=== PATIENT | female | born 1940 | race Caucasian/White ===

== ENCOUNTER 2023-06-09 03:19 | Inpatient (IN) | payer MEDICARE, BC, SELFPAY ==
[2023-06-09 03:21] VITALS: BP 167/87; PULSE 88; RESP 22; TEMP 35.9; O2SAT 95; BMI 28.2
--- NOTE | 2023-06-09 03:34 | EX.ED.DYSGE1 ---
HPI History of Present Illness Chief Complaint: Weakness Informant: patient and family Narrative Narrative: Patient has had aggressive watery diarrhea for the past day, almost 24 hours. They are from [facility], they were in [place] staying at a hotel because of [employer] high school playoff games, the patient stayed in the hotel the entire day because of feeling very tired. Tonight she was so weak and feeling poorly along with myalgias that she complains of in her legs, she has to go to the hospital. They went to a hospital in [place], and never made it into a bed because they were told the wait may be 6 hours so daughter put her in the car along with help, and brought her here. Needed significant help to get her out of the car because the patient was not able to help get herself up and out of the car at all. 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 She and the entire family ate fish at the same restaurant last night no one else is ill, no known sick contacts, no history of C. difficile, no recent antibiotics for any reason and no travel further than she already has, no travel out of the state recently. No other suspicious food intake. [facility] Medical History (Updated 06/09/23 @ 06:[address] Tom Jerry MD) Diabetes mellitus, type 2 HTN (hypertension) Vascular dementia Home Medications carvedilol 25 mg tablet 25 mg PO Q12H 06/09/23 [History Last Taken Unknown] hydrochlorothiazide 25 mg tablet 25 mg PO DAILY 06/09/23 [History Last Taken Unknown] lisinopril 40 mg tablet 40 mg PO DAILY 06/09/23 [History Last Taken Unknown] metformin 500 mg tablet 500 mg PO BIDAC 06/09/23 [History Last Taken Unknown] simvastatin 20 mg tablet 20 mg PO DAILY 06/09/23 [History Last Taken Unknown] Allergy/AdvReac Type Severity Reaction Status Date / Time promethazine [From Phenergan] Allergy Unknown UNSURE Verified 06/09/23 03:25 Family History (Updated 06/09/23 @ 05:[address] Lyle Montalvo DO) Other CAD (coronary artery disease) Social History Smoking Status: Never smoker ROS ROS ED Constitutional Constitutional ED: Reports body ache(s), fatigue and weakness; Denies chills or fever(s) Eyes Eyes: Denies change in vision or diplopia ENT ENT ED: Denies rhinorrhea or sore throat Cardiovascular Cardiovascular: Denies chest pain or palpitations Respiratory/Chest Respiratory/Chest: Reports dyspnea; Denies cough Gastrointestinal Gastrointestinal: Reports diarrhea; Denies abdominal pain, hematochezia, melena, nausea or vomiting Genitourinary Genitourinary ED: Denies dysuria or hematuria Musculoskeletal Musculoskeletal: Reports myalgias; Denies back pain or neck pain Integumentary Denies abscess or rash Neurologic Neurologic: Reports confusion; Denies headache(s), paresthesias or weakness Psychiatric Psychiatric: Denies anxiety or suicidal thoughts EXAM Physical Exam Const Vital Signs: 06/09/23 03:21 06/09/23 03:25 Temperature 96.7 F L Temperature Source Temporal Pulse Rate 88 Respiratory Rate 22 H Respiratory Effort Short of Breath Respiratory Pattern Tachypnea Blood Pressure 167/87 H Blood Pressure Mean 113 Pulse Ox 95 Oxygen Delivery Method Room Air Positive well nourished and well developed Constitutional Narrative: Appears malaised General Appearance ED: well developed and NAD HEENT Reports moist mucous membranes normocephalic and atraumatic Eyes PERRL and EOMs intact bilaterally Neck full ROM, no lymphadenopathy and supple Resp normal respiratory effort and clear to auscultation bilaterally Resp Narrative: Mildly tachypneic but in no respiratory distress, no retractions or accessory muscle use Cardio regular rate, regular rhythm and no murmurs GI non-tender and non-distended GI Narrative: Normal inspection no Steven sign no Pryor William sign Auscultation: normoactive bowel sounds Palpation: soft Back/Spine no CVA tenderness General Back: other FROM Extremity normal to inspection General Extremety ED: Negative for edema, pulses abnormal or tenderness General Extremity: Negative for edema or pulses abnormal Neuro CN's II-XII intact bilaterally and no sensory deficits noted Neuro Narrative: Near baseline according to daughter maybe a little more confused Sensorium / Orientation: awake, alert and orientation impaired Motor Exam: strength 5/5 throughout Psych mental status grossly normal Skin no rashes or lesions noted and no wounds MDM MDM MDM Narrative Medical decision making narrative: Patient is not from this area so no old labs available for comparison but her creatinine is elevated, she has prerenal azotemia on top of that, her troponin is nonspecifically slightly elevated in context of an EKG that shows no STEMI or significant ST depressions but there is a left axis, and since she has no old EKG unknown if this is new or not. If diarrhea is viral, myocarditis is in the differential here, but may be false positive due to acute dehydration. Chest x-ray 1 view on my interpretation shows no acute abnormality including pulmonary edema or pneumonia. Given all of this especially her acute weakness and inability to walk despite getting IV fluids here, discussed with hospitalist for admission for continued treatment, with other goals being to rule out acute coronary syndrome and to obtain stool for testing which has not been available so far, in order to rule out nonviral etiologies of her diarrhea. Lab Data Attestation: I reviewed the patient's lab results. Labs: Laboratory Results - last 24 hr 06/09/23 04:15 WBC 6.7 RBC 4.18 L Hgb 12.3 Hct 36.2 L MCV 86.6 MCH 29.4 MCHC 34.0 RDW Std Deviation 41.2 RDW Coeff of [place] 13.1 Plt Count 138 L MPV 10.6 Immature Gran % (Auto) 0.700 Neut % (Auto) 86.1 H Lymph % (Auto) 8.5 L [place] % (Auto) 4.6 Eos % (Auto) 0.0 Baso % (Auto) 0.1 Absolute Neuts (auto) 5.8 Absolute Lymphs (auto) 0.57 L Nucleated RBC % 0 Differential Comment SCANNED Sodium 135 L Potassium 4.0 Chloride 103 Carbon Dioxide 21.0 Anion Gap 11 BUN 32 H Creatinine 1.76 H Estim Creat Clear Calc 18.28 Est GFR (MDRD) Af Amer 35 L Est GFR (MDRD) Non-Af 29 L BUN/Creatinine Ratio 18.2 Glucose 204 H Lactic Acid 1.5 Calcium 8.2 L Total Bilirubin 0.50 AST 151 H ALT 55 Alkaline Phosphatase 61 Troponin I High Sens 111 H Total Protein 6.5 Albumin 3.1 L Globulin 3.4 Albumin/Globulin Ratio 0.9 ABG Data ABG results: ABG 06/09/23 04:38 Specimen Type PENELOPE Sample Site Not entered O2 % 21.0 VBG pH 7.41 VBG pO2 36 VBG HCO3 20 L VBG Total CO2 21 L VBG O2 Sat (Calc) 70 VBG Base Excess -5 L POC Mix VBG pCO2 Pt Tmp 31.3 L O2 Delivery Device Not entered Rhythm Strip Rhythm Strip: Sinus Rhythm Rate: 85 Ectopy: None EKG Initial EKG: Attestation: I personally reviewed and interpreted this EKG as follows: Interpretation: Sinus Rhythm, No Acute Injury Pattern and LAFB Prior EKG tracings: not available for review Prior: No Prior Management Discussion w/another healthcare provider: Hospitalist Discharge Plan Dx/Rx/DC Orders Clinical Impression: Acute dehydration, Elevated troponin I level, Acute diarrhea, Acute dyspnea, Generalized weakness Disposition Disposition: Acute Care Hospital [facility]
[2023-06-09] MEDS: 0.9% Normal Saline (1000mL) 1,000 ML 1000 ML IV (04:23)
[2023-06-09 04:42] LABS: Blood Gas Specimen Type VEN; O2 Delivery Device Not entered; SITE Not entered; VBG BASE EXCESS -5 mmol/L (-1.0-3.5); VBG Bicarbonate 20 mmol/L (22-26); VBG PO2 36 mmHg (25-40); VBG SO2 70 % (50-70); VBG TCO2 21 mmol/L (23-33); VBG pCO2 31.3 mmHg (41-51); VBG pH 7.41 (7.32-7.42)
[2023-06-09 04:50] LABS: ALB/GLOB Ratio 0.9 RATIO (0.9-2.4); AST(SGOT) 151 U/L (15-37); Alanine Aminotransfer ALT/SGPT 55 U/L (13-56); Albumin, Serum 3.1 g/dL (3.2-5.0); Alkaline Phosphatase 61 U/L (45-117); Anion Gap 11 (5-15); BUN 32 mg/dL (7-18); BUN/Creat Ratio 18.2 RATIO (10-20); Calcium,Total 8.2 mg/dL (8.5-10.1); Chloride 103 mmol/L (98-107); Creatinine, Serum 1.76 mg/dL (0.55-1.02); EST Glomerular Filtration Rate 29 mL/min (>60); Est Glom Filt Rate - Afr Amer 35 mL/min (>60); Estimated Creatinine Clearance 18.28 ml/min; Globulin 3.4 g/dL (2.2-4.2); Glucose 204 mg/dL (74-106); Protein, Total 6.5 g/dL (6.4-8.2); Sodium Level 135 mmol/L (136-145); Troponin-I HS 111 pg/mL (3.0-54.0)
--- NOTE | 2023-06-09 05:00 | EKG12_ITS ---
Test Reason : SOB Blood Pressure : / mmHG Vent. Rate : 086 BPM Atrial Rate : 086 BPM P-R Int : 156 ms QRS Dur : 088 ms QT Int : 352 ms P-R-T Axes : 029 -36 055 degrees QTc Int : 421 ms Normal sinus rhythm Left axis deviation Minimal voltage criteria for LVH, may be normal variant ( [place] product ) Septal infarct , age undetermined Abnormal ECG Confirmed by MIRTA GONZALEZ, ALEXANDRA ([id number]), restaurant expeditor JEANNINE BAXTER ([id number]) on 06/11/2023 10:51:33 AM Referred By: Lyle Montalvo Confirmed By:ALEXANDRA KIRBY MD
[2023-06-09 05:03] LABS: Absolute Lymphocyte Count 0.57 X10^3/uL (0.83-4.51); Absolute Neutrophil Count 5.8 X10^3/uL (2.0-7.7); Basophil# 0.01 X10^3/uL; Basophil% 0.1 % (0-1); Hematocrit 36.2 % (37-47); Hemoglobin 12.3 g/dL (12.0-15.0); Lymphocyte # 0.57 X10^3/ul (0.83-4.51); Lymphocyte % 8.5 % (19-41); Mean Corpuscular Hgb 29.4 pg (27.0-32.0); Mean Corpuscular Volume 86.6 fL (81-99); Mean Platelet Vol. 10.6 fl (6.2-12.0); Monocyte# 0.31 X10^3/uL; Monocyte% 4.6 % (0-10); NRBC Flagged by Analyzer 0 % (0-5); Neutrophil # 5.75 X10^3/uL (2.7-7.7); Neutrophil % 86.1 % (47-70); POSITIVE DIFFERENTIAL YES; Platelet Count 138 K/mm3 (150-450); RBC Distribution Width CV 13.1 % (11.6-14.6); RBC Distribution Width SD 41.2 fl (35.1-43.9); Red Blood Count 4.18 M/mm3 (4.2-5.4); White Blood Count 6.7 K/mm3 (4.4-11.0)
[2023-06-09 05:13] LABS: Lactic Acid 1.5 mmol/L (0.4-1.9)
[2023-06-09 05:26] LABS: Differential Indicated SCAN CRITERIA MET
--- NOTE | 2023-06-09 05:45 | RAD_ITS ---
EXAM: XR ABDOMEN, 1 VIEW CLINICAL INDICATION: nausea vomiting. TECHNIQUE: Frontal supine view of the abdomen/pelvis. COMPARISON: No relevant prior studies available. FINDINGS: LOWER THORAX: No acute pathology. GASTROINTESTINAL TRACT: Unremarkable. Non-obstructive. No bowel or stomach distention. ORGANS: Unremarkable as visualized. No organomegaly. No abnormal calcifications. BONES/JOINTS: No acute pathology. SOFT TISSUES: No acute pathology. RAD/Abdomen Single View (Portable) IMPRESSION: Non-obstructive bowel gas pattern. Electronically Signed: Jamel Weaver MD at 6:51 EST ,
[2023-06-09 05:49] LABS: Differential Comment SCANNED
--- NOTE | 2023-06-09 05:55 | HP.PCM.HOS_ITS ---
HPI - General General Date of Service: 06/09/23 Chief Complaint: Nausea, vomiting and weakness. HPI Narrative ANIL DENNIS, is a 82 F who presents 1 day history of diarrhea. Patient also very weak. Additionally also short of breath patient is a poor historian given her malaise so history is obtained from the patient's daughters at bedside. States that the patient is normally short of breath but this is much more exacerbated than times. Not requiring oxygen and not hypoxic however. Presented outside hospital and referred to bring patient in bed 7 to be a delay before they can get her room here. There is no records available in our system or through [employer]. Patient had a troponin ordered by the emergency room physician because of the shortness of breath and came back at 111. There was no reported chest pain nor does the patient have a history of cardiac disease. Chest x-ray has been ordered already in the emergency room but has not been perf ormed. Patient received IV fluids estimating that she did receive in the emergency room. With the nausea and vomiting there is no abdominal x-ray been ordered either nor urinalysis. Stool studies were ordered but not collected. [facility] Medical History (Updated 06/09/23 @ 05:[address] Lyle Montalvo DO) Diabetes mellitus, type 2 HTN (hypertension) Vascular dementia Home Medications carvedilol 25 mg tablet 25 mg PO Q12H 06/09/23 [History Last Taken Unknown] hydrochlorothiazide 25 mg tablet 25 mg PO DAILY 06/09/23 [History Last Taken Unknown] lisinopril 40 mg tablet 40 mg PO DAILY 06/09/23 [History Last Taken Unknown] metformin 500 mg tablet 500 mg PO BIDAC 06/09/23 [History Last Taken Unknown] simvastatin 20 mg tablet 20 mg PO DAILY 06/09/23 [History Last Taken Unknown] Allergy/AdvReac Type Severity Reaction Status Date / Time promethazine [From Phenergan] Allergy Unknown UNSURE Verified 06/09/23 03:25 Family History (Updated 06/09/23 @ 05:[address] Lyle Montalvo DO) Other CAD (coronary artery disease) Social History Smoking Status: Never smoker ROS ROS Narrative Patient is a poor historian and does not really provide any details as to just very tired and not willing to engage in questioning. Please refer to the HPI for further details. Vital Signs Vital Signs Vital Signs: 06/09/23 03:21 06/09/23 03:25 Temperature 35.9 C L Temperature Source Temporal Pulse Rate 88 Respiratory Rate 22 H Respiratory Effort Short of Breath Respiratory Pattern Tachypnea Blood Pressure 167/87 H Blood Pressure Mean 113 Pulse Ox 95 Oxygen Delivery Method Room Air Weight Weight: 67.7 kg Body Mass Index (BMI) 28.2 Physical Exam Const Constitutional Narrative: Listless. Afebrile. Nontoxic-appearing. HEENT normocephalic and moist oral mucous membranes Eyes Eyes Narrative: No icterus Neck no lymphadenopathy Neck Narrative: No thyromegaly Resp normal respiratory effort, no retractions, no use of accessory muscles and clear to auscultation bilaterally Cardio regular rate, regular rhythm, S1 normal heart sound and S2 normal heart sound GI GI Narrative: Distended. Nontender. Hypoactive bowel sounds. Extremity normal to inspection and no clubbing, cyanosis or edema Neuro moves all extremities and no focal motor deficits Psych Psych Narrative: Flat affect Results Lab / Micro Data Attestation: I reviewed the patient's lab results. 06/09/23 04:15 06/09/23 04:15 Labs: Laboratory Results - last 24 hr 06/09/23 04:15: WBC 6.7, RBC 4.18 L, Hgb 12.3, Hct 36.2 L, MCV 86.6, MCH 29.4, MCHC 34.0, RDW Std Deviation 41.2, RDW Coeff of Kan 13.1, Plt Count 138 L, MPV 10.6, Immature Gran % (Auto) 0.700, Neut % (Auto) 86.1 H, Lymph % (Auto) 8.5 L, [place] % (Auto) 4.6, Eos % (Auto) 0.0, Baso % (Auto) 0.1, Absolute Neuts (auto) 5.8, Absolute Lymphs (auto) 0.57 L, Nucleated RBC % 0, Differential Comment SCANNED, Sodium 135 L, Potassium 4.0, Chloride 103, Carbon Dioxide 21.0, Anion Gap 11, BUN 32 H, Creatinine 1.76 H, Estim Creat Clear Calc 18.28, Est GFR (MDRD) Af Amer 35 L, Est GFR (MDRD) Non-Af 29 L, BUN/Creatinine Ratio 18.2, Glucose 204 H, Lactic Acid 1.5, Calcium 8.2 L, Total Bilirubin 0.50, AST 151 H, ALT 55, Alkaline Phosphatase 61, Troponin I High Sens 111 H, Total Protein 6.5, Albumin 3.1 L, Globulin 3.4, Albumin/Globulin Ratio 0.9 ABG Data ABG results: ABG 06/09/23 04:38 Specimen Type PENELOPE Sample Site Not entered O2 % 21.0 VBG pH 7.41 VBG pO2 36 VBG HCO3 20 L VBG Total CO2 21 L VBG O2 Sat (Calc) 70 VBG Base Excess -5 L POC Mix VBG pCO2 Pt Tmp 31.3 L O2 Delivery Device Not entered Rhythm Strip Rhythm Strip: Sinus Rhythm Rate: 85 Ectopy: None EKG Initial EKG: Attestation: I personally reviewed and interpreted this EKG as follows: Prior EKG tracings: available for review EKG Rhythm Intrepretation: Sinus Rhythm (No prior EKGs available to compare to. No acute changes.) Assessment & Plan Assessment/Plan (1) Elevated troponin I level: PLAN: Unclear significance. Indication for troponin was because of shortness of breath. No baseline labs to be able to compare to in our system and nothing reg ards to prior troponin levels to be able to compare to management [facility] much less any other laboratories. Will cycle troponins. Start aspirin. Troponins do trend upwards, may need to consider anticoagulation. Will check an echocardiogram. Consult cardiology. Chest x-ray ordered in the emergency room but had not been performed by the time the hospital service was contacted. (2) Acute diarrhea: PLAN: Unclear etiology. Suspect may be more of a viral source. Stool studies ordered in the emergency room. Not collected yet. Supportive management. Abdomen is distended. Will check an abdominal x-ray. (3) TODD (acute kidney injury): PLAN: Suspected but no baseline labs to compare to. Creatinines at 1.7. IV fluids. Monitor (4) Debility: PLAN: Likely due to dehydration unclear if there is concern regards to the el evated troponin being a factor PT OT evaluate and treat Check UA to evaluate see patient has in the underlying urinary tract infection PLAN: Plan Chronic conditions * Vascular dementia: Unknown baseline. Avoid potentiating medications that may exacerbate delirium. * Diabetes mellitus type 2: On metformin. They will be held for now. Sliding scale insulin. * Hypertension: Hold HCTZ and lisinopril due to TODD. Continue with carvedilol. * Lipidemia: Continue statin. VTE prophylaxis with enoxaparin CODE STATUS: Addressed with the patient's daughter at bedside. Patient is full code. Charges/Coding Visit Charges Inpatient E&M: 44400 Init Hosp L3
--- NOTE | 2023-06-09 06:00 | RAD_ITS ---
EXAM: XR CHEST, 1 VIEW CLINICAL INDICATION: sob TECHNIQUE: Frontal view of the chest. COMPARISON: No relevant prior studies available. FINDINGS: LUNGS AND PLEURAL SPACES: Unremarkable. No consolidation or edema. No pneumothorax. No effusion. HEART: Unremarkable. Cardiac silhouette not enlarged. MEDIASTINUM: Central airways and mediastinal contour are unremarkable. BONES/JOINTS: Unremarkable. No acute fracture. SOFT TISSUES: Unremarkable. RAD/Chest 1 View (Portable) IMPRESSION: No radiographic evidence of acute cardiopulmonary disease. Electronically Signed: Jamel Weaver MD at 6:52 EST ,
[2023-06-09 07:12] VITALS: BMI 27.6
[2023-06-09 07:15] VITALS: BP 155/69; PULSE 91; RESP 18; TEMP 36.3; O2SAT 99
--- NOTE | 2023-06-09 07:24 | PN.HOSP_ITS ---
Reason for Visit Reason for Visit: Severe generalized weakness Subjective Subjective Patient is an 82-year-old female with a history of vascular dementia who pre sented to the emergency department at [facility] early this morning on 06/09/2023 complaining of generalized weakness. Patient has evidently had aggressive watery diarrhea for about the last 24 hours. Patient and family are from [place], [place]. They were in [place] watching the [employer] school football playoff game staying at [facility]. Evidently, the patient stayed at the hotel the entire day because she was not feeling well. She reported also having myalgias in her legs. They went to [facility] however never made it to her bed because they were told it may be a 6-hour wait in the emergency department so her daughter put her in the car and drove her to this facility. Upon presentation her temperature was 96.7, heart rate 88, respiratory was 22 oxygen saturations were 95% on room air and blood pressure was 167/87. Her CBC was overall unremarkable however she did have a mild thrombocytopenia with a platelet count 138,000 and a left shift showing a an 86.1% neutrophilia. Baseline platelet count is unknown as we have never had previous labs at this facility. Her chemistry panel showed an elevated BUN and serum creatinine at 32 and 1.76 respectively. Again on known baseline. Blood glucose was 204. Her lactic acid was normal at 1.5. Her AST was mildly elevated at 158 with normal ALT and her troponin was elevated at 111. She did not have chest pain on pr esentation. She was admitted to the PCU with her elevated troponin and cardiac enzymes have been cycled. Echocardiogram is pending and cardiology was consulted. Stool studies are pending for her diarrhea and PT and OT has been consulted. Objective Data Objective Data Vital Signs: Vital Signs Temp Pulse Resp BP Pulse Ox O2 Del Method 97.3 F L 91 18 155/69 H 99 Room Air 06/09/23 07:15 06/09/23 07:15 06/09/23 07:15 06/09/23 07:15 06/09/23 07:15 06/09/23 07:15 Oxygen Delivery Method Room Air Weight: 67.7 kg Body Mass Index (BMI) 28.2 Intake & Output: Intake and Output for Last 24 Hours 06/07/23 06/08/23 06/09/23 23:59 23:59 23:59 Intake Total 1000 / 1000 Balance 1000 / 1000 Lab / Micro Data 06/09/23 04:15 06/09/23 04:15 Labs: Laboratory Results - last 24 hr 06/09/23 04:15: WBC 6.7, RBC 4.18 L, Hgb 12.3, Hct 36.2 L, MCV 86.6, MCH 29.4, MCHC 34.0, RDW Std Deviation 41.2, RDW Coeff of Kan 13.1, Plt Count 138 L, MPV 10.6, Immature Gran % (Auto) 0.700, Neut % (Auto) 86.1 H, Lymph % (Auto) 8.5 L, [place] % (Auto) 4.6, Eos % (Auto) 0.0, Baso % (Auto) 0.1, Absolute Neuts (auto) 5.8, Absolute Lymphs (auto) 0.57 L, Nucleated RBC % 0, Differential Comment SCANNED, Sodium 135 L, Potassium 4.0, Chloride 103, Carbon Dioxide 21.0, Anion Gap 11, BUN 32 H, Creatinine 1.76 H, Estim Creat Clear Calc 18.28, Est GFR (MDRD) Af Amer 35 L, Est GFR (MDRD) Non-Af 29 L, BUN/Creatinine Ratio 18.2, Glucose 204 H, Lactic Acid 1.5, Calcium 8.2 L, Total Bilirubin 0.50, AST 151 H, ALT 55, Alkaline Phosphatase 61, Troponin I High Sens 111 H, Total Protein 6.5, Albumin 3.1 L, Globulin 3.4, Albumin/Globulin Ratio 0.9 Micro: Microbiology 06/09/23 06:23 Stool Stool Lactoferrin - Final ABG Data ABG results: ABG 06/09/23 04:38 Specimen Type PENELOPE Sample Site Not entered O2 % 21.0 VBG pH 7.41 VBG pO2 36 VBG HCO3 20 L VBG Total CO2 21 L VBG O2 Sat (Calc) 70 VBG Base Excess -5 L POC Mix VBG pCO2 Pt Tmp 31.3 L O2 Delivery Device Not entered Radiography Diagnostic Testing: Radiology Impression KUB X-Ray 06/09/23 05:45 IMPRESSION: Non-obstructive bowel gas pattern. Electronically Signed: Jamel Weaver MD at 6:51 EST , Chest X-Ray 06/09/23 06:00 IMPRESSION: No radiographic evidence of acute cardiopulmonary disease. Electronically Signed: Jamel Weaver MD at 6:52 EST Reading Location ID and State: [address] [place] [address] Tel , Service support , Rhythm Strip Rhythm Strip: Sinus Rhythm Rate: 85 Ectopy: None Assessment & Plan Assessment/Plan (1) Generalized weakness: (2) Acute dyspnea: (3) Debility: (4) TODD (acute kidney injury): (5) Acute diarrhea: (6) Elevated troponin I level: (7) Acute dehydration: (8) Elevated serum creatinine: (9) Thrombocytopenia: (10) UTI (urinary tract infection): PLAN: Plan Severe diarrhea -Lactoferrin was unremarkable -C. difficile and enteric panel are pending -KUB shows a nonobstructive bowel gas pattern -Continue IV fluids -Clear liquid diet and will advance as tolerated Elevated troponin level -Significance is unclear -Patient is not having chest pain and serum creatinine is elevated -We will cycle cardiac enzymes -Chest x-ray is unremarkable -Echocardiogram is pending Suspected UTI -Urine culture is consistent with urinary tract infection -Start ceftriaxone 1 g daily -Send culture Serum creatinine elevation -Baseline is unclear however admitting creatinine was 1.76 -Do suspect patient is dehydrated with diarrhea and lack of p.o. intake -IV fluids as ordered -Repeat in a.m. -Avoid nephrotoxins -Will hold home HCTZ and lisinopril with suspected TODD -Check CK Debility -PT/OT consultation -Case management/social work consultation for assistance with discharge planning Thrombocytopenia -Etiology is unclear -Baseline is unknown -Continue to monitor Acute dyspnea -Check COVID-19 and flu -Patient is currently on room air -Continue to monitor Hypertension -Hold HCTZ -Hold lisinopril -Continue home Coreg -As needed hydralazine for systolic pressure greater than 160 DM-2 -Hold home metformin -SSI -Will advance to cardiac/carb controlled diet once p.o. intake is tolerated well Hyperlipidemia -Continue home statin History of vascular dementia -Monitor DVT prophylaxis -Enoxaparin 40 subcu daily CODE STATUS -Full code is verified on presentation
--- NOTE | 2023-06-09 07:31 | ECHOD_ITS ---
Reason For Study: Elevated Troponin Procedure This was a 2D Doppler, Color Flow transthoracic echocardiogram. Exam performed portable in patient room. Left Ventricle Normal LV size. Left ventricular systolic function is normal. The estimated ejection fraction is 65 %. Stage 1 diastolic dysfunction. No regional wall motion abnormalities noted. Right Ventricle Normal RV size. Normal systolic function. Atria Normal left atrium. Normal right atrium. Mitral Valve Normal mitral valve. Tricuspid Valve Normal tricuspid valve. Mild tricuspid valve insufficiency. Pulmonary artery systolic pressure is 26 mmHg. Aortic Valve Normal aortic valve. Trisinus/trileaflet aortic valve. Pulmonic Valve Normal pulmonic valve. Great Vessels Normal aortic root. The pulmonary artery is normal size. Normal inferior vena cava. Pericardium/Pleural No pericardial effusion. MMode/2D Measurements & Calculations LVIDd: 3.7 cm IVSd: 0.92 cm Ao root diam: 2.6 cm LVIDs: 2.3 cm LVPWd: 1.0 cm RVDd: 2.3 cm FS: 39.8 % LAV(MOD-bp): 31.4 ml LVAd ap4: 16.7 cm2 SV(MOD-sp4): 23.5 ml LAV(MOD-bp) Indexed: 18.9 ml/m2 LVLd ap4: 6.1 cm LAV(MOD-sp2): 32.2 ml EDV(MOD-sp4): 37.9 ml LAV(MOD-sp4): 26.9 ml EDV(sp4-el): 38.8 ml LVAs ap4: 9.0 cm2 LVLs ap4: 4.9 cm ESV(MOD-sp4): 14.3 ml ESV(sp4-el): 14.1 ml EF(MOD-sp4): 62.1 % EF(sp4-el): 63.8 % SV(sp4-el): 24.8 ml LA A4 area: 11.6 cm2 LA dimension(2D): 3.5 cm RA A4 area: 6.5 cm2 TAPSE: 2.1 cm Time Measurements MV dec time: 0.30 sec Doppler Measurements & Calculations MV E max scott: 74.6 cm/sec Lat Peak E' Scott: 8.1 cm/sec Med Peak E' Scott: 6.3 cm/sec MV A max scott: 109.1 cm/sec E/E' lat: 9.2 E/E' med: 11.8 MV E/A: 0.68 Ao V2 max: 187.6 cm/sec LV V1 max: 113.0 cm/sec MV dec slope: 250.0 cm/sec2 Ao max P.1 mmHg LV V1 max P.1 mmHg Ao V2 mean: 148.9 cm/sec LV V1 mean P.3 mmHg Ao mean P.2 mmHg LV V1 mean: 85.6 cm/sec Ao V2 VTI: 37.4 cm LV V1 VTI: 23.0 cm AV (velocity ratio): 0.62 PA V2 max: 101.8 cm/sec TR max scott: 236.9 cm/sec TR max P.4 mmHg ECHO/Echo Complete Interpretation Summary Normal LV size. Left ventricular systolic function is normal. The estimated ejection fraction is 65 %. Stage 1 diastolic dysfunction. Pulmonary artery systolic pressure is 26 mmHg. Ordering Physician: Lyle Montalvo Referring Physician: Lyle Montalvo Performed By: Antonina Gill, DAVID, RVT
[2023-06-09] MEDS: 0.9% Normal Saline (1000mL) 1,000 ML 150 ML IV (08:14)
[2023-06-09 08:37] VITALS: O2SAT 96
[2023-06-09 09:31] LABS: Troponin-I HS 132 pg/mL (3.0-54.0)
[2023-06-09] MEDS: Carvedilol 25 MG Tablet PO (10:02)
[2023-06-09] MEDS: Enoxaparin 30 MG/0.3 ML Syringe SC (10:03)
[2023-06-09] MEDS: Aspirin 81 MG TAB.CHEW 324 MG PO (10:05)
[2023-06-09] MEDS: Insulin Lispro 100 UNIT/ML INSULN.PEN SC ×2 (10:11→16:40)
[2023-06-09 10:27] LABS: Bedside Glucose 240 mg/dL (74-106)
[2023-06-09 11:05] LABS: Mucous, Urine 0 SEEN /hpf (<or=2+); Red Blood Cells-Urine 0 SEEN /hpf (0-5); Squamous Epithelial Cells - UA 0 SEEN /hpf (5-10)
[2023-06-09 11:07] LABS: Color, Urine Yellow (Yellow); Glucose, Dipstick Normal (Normal); Ketone-Dipstick 5 mg/dl (Negative); Leukocyte Esterase-Dipstick 500 /ul (Negative); Nitrite-Dipstick Positive (Negative); Occult Blood-Urine 250 /ul (Negative); Protein-Dipstick 100 mg/dl (Negative); Specific Gravity, Urine 1.015 (1.002-1.030); Urine Bilirubin Dipstick Negative (Negative); Urine Clarity Clear (Clear); Urine Urobilinogen Normal (Normal)
[2023-06-09 11:59] LABS: Bacteria 3+ /hpf (None Seen); White Blood Cells >100 SEEN /hpf (0-5)
--- NOTE | 2023-06-09 12:49 | CASEMGMT ---
Addendum entered by Rustam Wood 06/09/23 13:06: Family live nearby and are supportive. Original Note: RN?CM?GEAR TOOTH GRINDING MACHINE OPERATOR?CM?to room to meet with patient for initial transition planning/care coordination?assessment.?RN?CM?introduced self and role at [facility].? Pt voices understanding and consents to?assessment?at this time.? Pt resting in bed in no distress at this time.? Son, Prashanth, @ bedside. Pt is A/O at this time and able to answer most questions, but she did refer to her son for some additional information. Care providers, pharmacy, and demographics verified/updated at this time. PCP: Dr Estrellita Perez in [facility] Specialists: Pt and son think pt f/u with a instructional coordinator in [facility], but not sure and not sure on his name. Pt sees a neurologist @ [facility] and gets cognitive testing routinely (about every 6 months). Has dx of vascular dementia. Preferred Pharmacy: [facility]. Pt and son think she has a supplemental insurance, but not sure what co. Son states he will try and get this information. Prescription Benefit:?Yes Living Will/HPOA:?Son states he thinks pt has done LW and HCPOA and that POA would be pt's daughter, Juwan. LNOK: 7 adult children. Living Arrangements: Lives alone in ranch-style home w/2 steps to enter. Son states she rarely goes to the basement. Pt is independent w/ADL's and IADL's. Juwan helps to manage medications and sets up weekly pill containers. Transportation:?Pt, family DME: ?States has the following DME:?glucometer w/supplies, BP cuff. ?Pt and son state no need for further DME at this time.? HHC/SNF: No hx of either. No needs identified. Pt wishes to return home and pt and son state no concerns with her going home at time of discharge. PLAN:??Home w/family support and discharge plans in place. Homero GERMANN?RN?CM
[2023-06-09 13:15] VITALS: BP 125/52; PULSE 79; RESP 16; TEMP 36.7; O2SAT 100
[2023-06-09] MEDS: Ceftriaxone 1 GM/50 ML BAG IV (13:56)
[2023-06-09 15:06] LABS: CPK Total, Creatine Kinase 9479 U/L (26-192)
[2023-06-09] MEDS: Pramipexole Di-HCl 0.5 MG Tablet PO (15:10)
--- NOTE | 2023-06-09 15:23 | PCM.HOSP.N ---
Hospitalist Note Patient was noted to have blood but no RBCs on her UA so I did get a CPK which was elevated at greater than 9000. Will continue IV fluids continuously at 100 cc/h and check every 6 hours CPKs. If trends down no need for alkalinization of her urine however if she does not improve may need to consider this with her TODD. UA is also suggestive of urinary tract infection so we will go ahead and start ceftriaxone 1 g daily and culture is pending.
[2023-06-09] MEDS: Lactated Ringers 1,000 ML 100 ML IV (15:45)
[2023-06-09 16:52] LABS: Troponin-I HS 127 pg/mL (3.0-54.0)
[2023-06-09 16:59] LABS: Bedside Glucose 181 mg/dL (74-106)
[2023-06-09 20:53] VITALS: BP 106/67; PULSE 82; RESP 18; TEMP 37.2; O2SAT 97
[2023-06-09] MEDS: Atorvastatin Calcium 10 MG Tablet PO (20:56)
[2023-06-09 22:13] LABS: Bedside Glucose 214 mg/dL (74-106)
[2023-06-09 22:27] LABS: CPK Total, Creatine Kinase 9909 U/L (26-192)
[2023-06-10] VITALS (8 sets, daily range): BP systolic 105–159; BP diastolic 49–61; PULSE 69–82; RESP 16–24; TEMP 37.1–39.3; O2SAT 94–98
[2023-06-10] MEDS: Lactated Ringers 1,000 ML 100 ML IV ×2 (01:13→11:22)
[2023-06-10 04:39] LABS: Absolute Lymphocyte Count 0.61 X10^3/uL (0.83-4.51); Basophil# 0.01 X10^3/uL; Basophil% 0.3 % (0-1); Hematocrit 32.2 % (37-47); Hemoglobin 10.8 g/dL (12.0-15.0); Lymphocyte # 0.61 X10^3/ul (0.83-4.51); Lymphocyte % 16.1 % (19-41); Mean Corp Hgb Conc 33.5 g/dL (32-36); Mean Corpuscular Volume 86.3 fL (81-99); Mean Platelet Vol. 10.8 fl (6.2-12.0); Monocyte# 0.16 X10^3/uL; Monocyte% 4.2 % (0-10); NRBC Flagged by Analyzer 0 % (0-5); Neutrophil # 2.97 X10^3/uL (2.7-7.7); Neutrophil % 78.6 % (47-70); POSITIVE COUNT YES; Platelet Count 95 K/mm3 (150-450); RBC Distribution Width CV 13.1 % (11.6-14.6); RBC Distribution Width SD 41.1 fl (35.1-43.9); Red Blood Count 3.73 M/mm3 (4.2-5.4); White Blood Count 3.8 K/mm3 (4.4-11.0)
[2023-06-10 04:59] LABS: Anion Gap 10 (5-15); BUN 23 mg/dL (7-18); BUN/Creat Ratio 19.5 RATIO (10-20); Calcium,Total 7.5 mg/dL (8.5-10.1); Chloride 104 mmol/L (98-107); Creatinine, Serum 1.18 mg/dL (0.55-1.02); EST Glomerular Filtration Rate 46 mL/min (>60); Est Glom Filt Rate - Afr Amer 56 mL/min (>60); Estimated Creatinine Clearance 27.26 ml/min; Glucose 170 mg/dL (74-106); Potassium 3.8 mmol/L (3.5-5.1); Sodium Level 134 mmol/L (136-145)
[2023-06-10 05:08] LABS: Differential Indicated SCAN CRITERIA MET
[2023-06-10 05:30] LABS: CPK Total, Creatine Kinase 9178 U/L (26-192)
[2023-06-10] MEDS: Insulin Lispro 100 UNIT/ML INSULN.PEN SC ×3 (06:30→16:41)
[2023-06-10 06:53] LABS: Bedside Glucose 180 mg/dL (74-106)
[2023-06-10 06:56] LABS: Differential Comment SCANNED
--- NOTE | 2023-06-10 09:50 | CT_ITS ---
STUDY: CTA CHEST REASON FOR EXAM: Female, 82 years old. Atypical chest pain and shortness of breath RADIATION DOSAGE (If Supplied By Facility): CTDIvol = ( 12.49 ) mGy, DLP = ( 498.28 ) mGycm TECHNIQUE: The examination was performed with the intravenous administration of IV 75mL Isovue-370. Post-processing of the angiographic images was performed, with multiplanar reformation and 3D reconstruction. Individualized dose optimization techniques were used for this CT. COMPARISON: None. FINDINGS: Normal enhancement of the main pulmonary artery and right and left pulmonary arteries. Normal enhancement of the bilateral peripheral pulmonary arteries. There is no demonstrated pulmonary embolism. Normal thoracic aorta and visualized great vessels. There is no demonstrated aortic dissection. Normal heart and pericardium. No suspicious axillary, mediastinal, or perihilar adenopathy. Normal visualized trachea and bronchi. The lungs are well expanded. Study is limited due to motion artifact, there is no organized infiltrate or effusion, there is evidence to suspect pulmonary vascular congestion and chronic bronchitis. Normal pleura. Normal chest wall structures. There are degenerative changes of thoracic spine. Normal visualized upper abdomen. CT/CTA Chest W/WO Contrast IMPRESSION: No demonstrated PE, or thoracic aortic aneurysm or dissection Interstitial edema in both lung ruggiero with evidence of chronic bronchitis, no superimposed infiltrate or effusion No suspicious adenopathy Degenerative bony changes Electronically Signed: Dada Davis MD at 10:32 EST ,
[2023-06-10] MEDS: Pantoprazole Sodium 40 MG in 0.9% Normal Saline (100mL MB+) 100 ML 330 MG IV ×2 (11:22→20:35)
[2023-06-10] MEDS: Acetaminophen 325 MG Tablet 650 MG PO ×2 (11:24→20:35)
[2023-06-10] MEDS: Aspirin E.C. 81 MG Tablet PO (11:24)
[2023-06-10] MEDS: Enoxaparin 30 MG/0.3 ML Syringe SC (11:24)
[2023-06-10] MEDS: Carvedilol 25 MG Tablet PO ×2 (11:24→20:35)
[2023-06-10] MEDS: Flu Vacc QS2023-24(65YR UP)/PF 240 MCG/0.7 ML Syringe IM (11:25)
[2023-06-10 11:50] LABS: Bedside Glucose 340 mg/dL (74-106)
--- NOTE | 2023-06-10 12:07 | PCM.PN.HOSP ---
Reason for Visit Reason for Visit: Generalized weakness Subjective Subjective Still with some loose stool about 3 yesterday and 1 this morning thus far. No noted blood. Family also reports that patient has had significant shortness of breath for some time and it seems to be progressively worsening. It is predominantly with exertion. This does not appear to be acute but has been progressively worsening over time. I did review with them the findings on the echocardiogram and her improvement in renal function. She may need discharge to a skilled facility for more rehab and the patient is amenable to this however there was some argument between family members and they would sort through this at a later date. She does have significant history of secondhand smoke exposure but no personal history of tobacco abuse or environmental exposures related to employment other than secondhand smoke. Patient denies noting any shortness of breath. Objective Data Objective Data Vital Signs: Vital Signs Temp Pulse Resp BP Pulse Ox O2 Del Method 100.1 F H 81 20 H 135/51 H 95 Room Air 06/10/23 11:11 06/10/23 11:11 06/10/23 11:11 06/10/23 11:11 06/10/23 11:11 06/10/23 11:11 Oxygen Delivery Method Room Air Weight: 66.5 kg Body Mass Index (BMI) 27.6 Intake & Output: Intake and Output for Last 24 Hours 06/08/23 06/09/23 06/10/23 23:59 23:59 23:59 Intake Total 2350 / 2400 1913.34 / 1913.34 Balance 2350 / 2400 1913.34 / 1913.34 Lab / Micro Data 06/10/23 04:18 06/10/23 04:18 Labs: Laboratory Results - last 24 hr 06/09/23 13:36: Total Creatine Kinase 9479 H, Troponin I High Sens 127 H* 06/09/23 16:34: POC Glucose 181 H 06/09/23 20:54: POC Glucose 214 H 06/09/23 21:10: Total Creatine Kinase 9909 H 06/10/23 04:18: WBC 3.8 L, RBC 3.73 L, Hgb 10.8 L, Hct 32.2 L, MCV 86.3, MCH 29.0, MCHC 33.5, RDW Std Deviation 41.1, RDW Coeff of Kan 13.1, Plt Count 95 L, MPV 10.8, Immature Gran % (Auto) 0.800, Neut % (Auto) 78.6 H, Lymph % (Auto) 16.1 L, [place] % (Auto) 4.2, Eos % (Auto) 0.0, Baso % (Auto) 0.3, Absolute Neuts (auto) 3.0, Absolute Lymphs (auto) 0.61 L, Nucleated RBC % 0, Differential Comment SCANNED, Sodium 134 L, Potassium 3.8, Chloride 104, Carbon Dioxide 20.0 L, Anion Gap 10, BUN 23 H, Creatinine 1.18 H, Estim Creat Clear Calc 27.26, Est GFR (MDRD) Af Amer 56 L, Est GFR (MDRD) Non-Af 46 L, BUN/Creatinine Ratio 19.5, Glucose 170 H, Calcium 7.5 L, Total Creatine Kinase 9178 H 06/10/23 06:28: POC Glucose 180 H 06/10/23 11:27: POC Glucose 340 H Micro: Microbiology 06/09/23 09:27 Urine, Random Urine Culture - Preliminary GNR lactose insurance adviser 06/09/23 13:43 Nasal Secretion SARS-CoV-2 & FLU Antigen (Rapid) - Final 06/09/23 05:10 Stool Stool Occult Blood (LETY) - Final Occult Blood Positive 06/09/23 06:23 Stool Stool Lactoferrin - Final 06/09/23 06:23 Stool Enteric Bacteriology - Final 06/09/23 06:23 Stool C. difficile DNA Amplification - Final Radiography Diagnostic Testing: Radiology Impression Chest CTA 06/10/23 09:50 IMPRESSION: No demonstrated PE, or thoracic aortic aneurysm or dissection Interstitial edema in both lung ruggiero with evidence of chronic bronchitis, no superimposed infiltrate or effusion No suspicious adenopathy Degenerative bony changes Electronically Signed: Dada Davis MD at 10:32 EST , Rhythm Strip Rhythm Strip: Sinus Rhythm Rate: 85 Ectopy: None Physical Exam Const alert, oriented x3, no apparent distress and well nourished Constitutional Narrative: Overweight, nontoxic but ill-appearing elderly white female, lying in bed, appears comfortable but ill, family at bedside HEENT normocephalic, head/scalp atraumatic and moist oral mucous membranes HEENT Narrative: Mallampati 2-3, no thrush Eyes Eyes Narrative: No icterus Resp no retractions, no use of accessory muscles and clear to auscultation bilaterally Resp Narrative: Mild tachypnea noted but no signs of distress no specific adventitious sounds however lungs do sound slightly coarse Auscultation: Negative for rales, rhonchi or wheezes Cardio regular rate, regular rhythm, S1 normal heart sound, S2 normal heart sound, no murmurs, no rub, no gallops and no clicks GI normal to inspection, nondistended, normoactive bowel sounds, soft to palpation and non-tender Extremity normal to inspection and no clubbing, cyanosis or edema Neuro oriented x3, moves all extremities and no focal motor deficits Neuro Narrative: Significant generalized weakness noted with no focal deficits Speech: speech normal Psych Psych Narrative: Flat affect but appropriate for current situation Assessment & Plan Assessment/Plan (1) Generalized weakness: (2) Acute dyspnea: (3) Debility: (4) TODD (acute kidney injury): (5) Acute diarrhea: (6) Elevated troponin I level: (7) Acute dehydration: (8) Elevated serum creatinine: (9) Thrombocytopenia: (10) UTI (urinary tract infection): (11) Exertional dyspnea: (12) Acute anemia: PLAN: Plan Severe diarrhea -Lactoferrin was unremarkable -C. difficile and enteric panel are negative -Hemoccult is positive -KUB shows a nonobstructive bowel gas pattern -Continue IV fluids but reduce rate to 50 cc/h -Clear liquid diet and will advance as tolerated Acute anemia -Suspect some of this is dilutional however her Hemoccult stool was positive for blood -Start IV Protonix 40 twice daily -Repeat hemoglobin in a.m. -Patient is not anticoagulated at baseline -Never had EGD and has not had a colonoscopy in a long time -Will hold enoxaparin for DVT prophylaxis -GI consultation pending Elevated troponin level -Significance is unclear -Patient is not having chest pain and serum creatinine is elevated -Cardiac enzymes peaked at 138 now trending down in the setting of acute kidney injury -Chest x-ray is unremarkable -Echocardiogram shows an EF of 65% with stage I diastolic dysfunction and no regional wall motion abnormalities and a pulm artery systolic pressure of 26 mmHg Exertional dyspnea -Echo unremarkable -COVID and flu are negative -Will check respiratory viral panel -CTA of the chest was overall unremarkable -This has evidently been not worsening with time--> will assess with stress test tomorrow given history and concern that this could be possible anginal equivalent -If the rest of her workup is unremarkable here would recommend outpatient pulmonary follow-up for pulmonary function test Acute urinary tract fohdcjlvi-nljw-bseblcry rods-lactose insurance adviser -Continue ceftriaxone 1 g daily -Await specific identification and sensitivities TODD -Baseline is unclear however admitting creatinine was 1.76 -Serum creatinine is down to 1.18 -IV fluids as ordered -Repeat in a.m. -Avoid nephrotoxins -Continue to hold HCTZ and lisinopril with suspected TODD Rhabdomyolysis -CK was elevated at greater than 9000 but now downtrending -Continue IV fluids at 50 cc/h over the next 4 hours specifically because we did give her some contrast to help flush out her kidneys -Renal function is normalizing Debility -PT/OT following and currently recommend ongoing therapy at the time of discharge -Case management/social work consultation for assistance with discharge planning Thrombocytopenia -Etiology is unclear -Baseline is unknown -Continue to monitor Acute dyspnea -Check COVID-19 and flu -Patient is currently on room air -Continue to monitor Hypertension -Hold HCTZ -Hold lisinopril -Continue home Coreg -As needed hydralazine for systolic pressure greater than 160 DM-2 -Hold home metformin -SSI -Will advance to cardiac/carb controlled diet once p.o. intake is tolerated well Hyperlipidemia -Continue home statin History of vascular dementia -Monitor DVT prophylaxis -SCDs -Hold enoxaparin with guaiac positive stool CODE STATUS -Full code is verified on presentation Charges/Coding Visit Charges Inpatient E&M: 85178 Subs Hosp L3
[2023-06-10] MEDS: Ceftriaxone 1 GM/50 ML BAG IV (13:04)
[2023-06-10] MEDS: Lactated Ringers 1,000 ML 50 ML IV (15:18)
[2023-06-10 17:04] LABS: Bedside Glucose 200 mg/dL (74-106)
--- NOTE | 2023-06-10 18:06 | EX.PCM.CON.G ---
HPI Consult Data Date of Consult: 06/10/23 HPI Narrative Reason for Consultation: Anemia HPI Narrative: ANIL DENNIS, is a 82 F who presented with diarrhea, muscle aches and fatigue. She states that the patient is normally short of breath but this is much more exacerbated than times. Not requiring oxygen and not hypoxic however . She had an echocardiogram yesterday: It displayed normal LV size, left ventricular systolic function was normal with estimated ejection fraction of 65% and stage I diastolic dysfunction. The pulmonary systolic pressure was 26 mmHg. There was no reported chest pain nor does the patient have a history of cardiac disease. Chest x-ray has been ordered already in the emergency room but has not been performed. Patient received IV fluids estimating that she did receive in the emergency room. With the nausea and vomiting there is no abdominal x-ray been ordered either nor urinalysis. Stool studies did not show any signs of infection. She did subsequently get a CPK and was determined to be in mild rhabdomyolysis and has been receiving appropriate IV fluids. She does take a statin as an outpatient. I was called to see her due to decreasing hemoglobin and Hemoccult positive stools. She has never had an upper endoscopy. She does not take any aspirin or nonsteroidals. She did have a colonoscopy in the past but it was a very long time ago. [facility] Medical History (Updated 06/10/23 @ 12:[address] Mignon France DO) Diabetes mellitus, type 2 HTN (hypertension) Vascular dementia Home Medications carvedilol 25 mg tablet 25 mg PO Q12H 06/09/23 [History Last Taken Unknown] hydrochlorothiazide 25 mg tablet 25 mg PO DAILY 06/09/23 [History Last Taken Unknown] lisinopril 40 mg tablet 40 mg PO DAILY 06/09/23 [History Last Taken Unknown] metformin 500 mg tablet 500 mg PO BIDAC 06/09/23 [History Last Taken Unknown] simvastatin 20 mg tablet 20 mg PO DAILY 06/09/23 [History Last Taken Unknown] Allergy/AdvReac Type Severity Reaction Status Date / Time promethazine [From Phenergan] Allergy Unknown UNSURE Verified 06/09/23 03:25 Family History Other CAD (coronary artery disease) Social History Smoking Status: Never smoker ROS Review of Systems ROS Unobtainable: other Constitutional Constitutional: Denies fatigue, fever(s), poor appetite, weight gain or weight loss ENT HEENT: Denies mouth lesions Cardiovascular Cardiovascular: Denies abdominal bloating, abdominal edema or abdominal pain Respiratory/Chest Respiratory/Chest: Denies change in mental status, change in phlegm color, chest congestion or chest tightness Gastrointestinal Gastrointestinal: Denies belching, bloating, change in bowel habits, change in stool character, chewing difficulty, coffee ground emesis, constipation, cramping, diarrhea, dyspepsia, dysphagia, early satiety, excessive flatus, fecal incontinence, heartburn, hematemesis, hematochezia, hemorrhoids, loose stools, melena, nausea, odynophagia, rectal bleeding, tenesmus, vomiting or weight changes Genitourinary Genitourinary: Denies abdominal discomfort, burning urination or itching Musculoskeletal Musculoskeletal: Reports as per HPI; Denies muscle weakness or myalgias Integumentary Integumentary: Denies jaundice Neurologic Neurologic: Denies lack of coordination or weakness Psychiatric Psychiatric: Denies confusion, depression, memory loss, mood swings, paranoia or suicidal ideation Endocrine Endocrinology: Denies systems reviewed and no addt'l complaints, except as documented Hematologic/Lymphatic Hematologic/Lymphatic: Denies anemia, easy bleeding, easy bruising or lymphadenopathy Allergic/Immunologic Allergic/Immunologic: Denies systems reviewed and no addt'l complaints, except as documented Physical Exam Const alert, oriented x3, no apparent distress and well nourished HEENT normocephalic, head/scalp atraumatic and moist oral mucous membranes HEENT Narrative: Mallampati 2-3, no thrush Eyes Eyes Narrative: No icterus Resp no retractions, no use of accessory muscles and clear to auscultation bilaterally Resp Narrative: Mild tachypnea noted but no signs of distress no specific adventitious sounds however lungs do sound slightly coarse Auscultation: Negative for rales, rhonchi or wheezes Cardio regular rate, regular rhythm, S1 normal heart sound, S2 normal heart sound, no murmurs, no rub, no gallops and no clicks GI normal to inspection, nondistended, normoactive bowel sounds, soft to palpation and non-tender Extremity normal to inspection and no clubbing, cyanosis or edema Neuro oriented x3, moves all extremities and no focal motor deficits Neuro Narrative: Significant generalized weakness noted with no focal deficits Speech: speech normal Psych Psych Narrative: Flat affect but appropriate for current situation Lab / Micro Data 06/10/23 04:18 06/10/23 04:18 Labs: Laboratory Results - last 24 hr 06/09/23 20:54: POC Glucose 214 H 06/09/23 21:10: Total Creatine Kinase 9909 H 06/10/23 04:18: WBC 3.8 L, RBC 3.73 L, Hgb 10.8 L, Hct 32.2 L, MCV 86.3, MCH 29.0, MCHC 33.5, RDW Std Deviation 41.1, RDW Coeff of Kan 13.1, Plt Count 95 L, MPV 10.8, Immature Gran % (Auto) 0.800, Neut % (Auto) 78.6 H, Lymph % (Auto) 16.1 L, [place] % (Auto) 4.2, Eos % (Auto) 0.0, Baso % (Auto) 0.3, Absolute Neuts (auto) 3.0, Absolute Lymphs (auto) 0.61 L, Nucleated RBC % 0, Differential Comment SCANNED, Sodium 134 L, Potassium 3.8, Chloride 104, Carbon Dioxide 20.0 L, Anion Gap 10, BUN 23 H, Creatinine 1.18 H, Estim Creat Clear Calc 27.26, Est GFR (MDRD) Af Amer 56 L, Est GFR (MDRD) Non-Af 46 L, BUN/Creatinine Ratio 19.5, Glucose 170 H, Calcium 7.5 L, Total Creatine Kinase 9178 H 06/10/23 06:28: POC Glucose 180 H 06/10/23 11:27: POC Glucose 340 H 06/10/23 16:40: POC Glucose 200 H Micro: Microbiology 06/10/23 13:40 Mucosa - Nose Respiratory Panel (PCR) - Final 06/09/23 09:27 Urine, Random Urine Culture - Preliminary GNR lactose crate liner 06/09/23 13:43 Nasal Secretion SARS-CoV-2 & FLU Antigen (Rapid) - Final 06/09/23 05:10 Stool Stool Occult Blood (LETY) - Final Occult Blood Positive Rhythm Strip Rhythm Strip: Sinus Rhythm Rate: 85 Ectopy: None Imagaing Radiology Impression Chest CTA 06/10/23 09:50 IMPRESSION: No demonstrated PE, or thoracic aortic aneurysm or dissection Interstitial edema in both lung ruggiero with evidence of chronic bronchitis, no superimposed infiltrate or effusion No suspicious adenopathy Degenerative bony changes Electronically Signed: Dada Davis MD at 10:32 EST , Assessment & Plan Assessment/Plan (1) Elevated troponin I level: PLAN: Possibly associated with her rhabdomyolysis. (2) Acute diarrhea: PLAN: Unclear etiology. Suspect may be more of a viral source. Her stool studies are negative. Differential diagnosis does include microscopic colitis, collagenous colitis, metformin, accelerated gastrocolic reflex, as a consequence of rhabdomyolysis. Patient since she has not had a colonoscopy in a long time would benefit from a colonoscopy and upper endoscopy to evaluate of her upper or lower GI tract. However she does not know if she wants to do this at this time. (3) TODD (acute kidney injury): PLAN: Creatinines at 1.7 and improving. (4) Debility: (5) Acute anemia: PLAN: Patient would benefit from an upper and lower endoscopy. We can do the upper endoscopy as an inpatient and do the colonoscopy as an outpatient. I suspect that her hemoglobin will continue to decrease. It is likely decreasing secondary to dilution versus note iron stores in the setting of a Hemoccult positive stool which could be from an occult malignancy. Charges/Coding Visit Charges Inpatient E&M: 82319 Init Hosp L3
[2023-06-10] MEDS: Pramipexole Di-HCl 0.5 MG Tablet PO (20:35)
[2023-06-10] MEDS: Atorvastatin Calcium 10 MG Tablet PO (20:35)
[2023-06-10 22:03] LABS: Bedside Glucose 220 mg/dL (74-106)
[2023-06-11] VITALS (9 sets, daily range): BP systolic 130–163; BP diastolic 54–64; PULSE 68–81; RESP 18–22; TEMP 37–37.9; O2SAT 94–99; BMI 29.2
[2023-06-11] MEDS: Aspirin E.C. 81 MG Tablet PO (06:19)
[2023-06-11 07:02] LABS: Basophil# 0.02 X10^3/uL; Basophil% 0.8 % (0-1); Hematocrit 31.5 % (37-47); Hemoglobin 10.6 g/dL (12.0-15.0); Lymphocyte % 18.9 % (19-41); Mean Corp Hgb Conc 33.7 g/dL (32-36); Mean Corpuscular Volume 86.3 fL (81-99); Monocyte# 0.15 X10^3/uL; Monocyte% 5.7 % (0-10); NRBC Flagged by Analyzer 0 % (0-5); Neutrophil # 1.96 X10^3/uL (2.7-7.7); Neutrophil % 74.2 % (47-70); POSITIVE COUNT YES; POSITIVE DIFFERENTIAL YES; POSITIVE MORPHOLOGY YES; Platelet Count 77 K/mm3 (150-450); RBC Distribution Width CV 13.2 % (11.6-14.6); RBC Distribution Width SD 41.6 fl (35.1-43.9); Red Blood Count 3.65 M/mm3 (4.2-5.4); White Blood Count 2.6 K/mm3 (4.4-11.0)
[2023-06-11 07:05] LABS: Differential Indicated SCAN CRITERIA MET
[2023-06-11 07:05] LABS: Bedside Glucose 156 mg/dL (74-106)
[2023-06-11] MEDS: Albuterol 2.5 MG/3 ML VIAL.NEB. INHALATION ×2 (07:07→21:13)
[2023-06-11 08:09] LABS: ALB/GLOB Ratio 0.8 RATIO (0.9-2.4); AST(SGOT) 187 U/L (15-37); Alanine Aminotransfer ALT/SGPT 88 U/L (13-56); Albumin, Serum 2.4 g/dL (3.2-5.0); Alkaline Phosphatase 48 U/L (45-117); Anion Gap 6 (5-15); BUN 23 mg/dL (7-18); BUN/Creat Ratio 18.3 RATIO (10-20); Chloride 103 mmol/L (98-107); Creatinine, Serum 1.26 mg/dL (0.55-1.02); EST Glomerular Filtration Rate 43 mL/min (>60); Est Glom Filt Rate - Afr Amer 52 mL/min (>60); Estimated Creatinine Clearance 25.53 ml/min; Globulin 3.2 g/dL (2.2-4.2); Glucose 157 mg/dL (74-106); Phosphorus 2.4 mg/dL (2.5-4.9); Potassium 3.7 mmol/L (3.5-5.1); Protein, Total 5.6 g/dL (6.4-8.2); Sodium Level 132 mmol/L (136-145); Thyroid Stim Hormone (TSH) 2.11 uIU/mL (0.358-3.74)
[2023-06-11 08:31] LABS: CPK Total, Creatine Kinase 6056 U/L (26-192)
[2023-06-11 09:39] LABS: Platelet Estimate MOD DEC (ADEQ)
[2023-06-11] MEDS: 0.9% Saline Lock 10 ML Syringe IV ×2 (11:09→11:36)
[2023-06-11] MEDS: 0.9% Normal Saline (1000mL) 1,000 ML 75 ML IV ×2 (11:09→21:29)
[2023-06-11] MEDS: Carvedilol 25 MG Tablet PO ×2 (11:11→21:31)
[2023-06-11] MEDS: Pantoprazole Sodium 40 MG in 0.9% Normal Saline (100mL MB+) 100 ML 330 MG IV ×2 (11:19→21:34)
[2023-06-11] MEDS: Ceftriaxone 1 GM/50 ML BAG IV (11:32)
[2023-06-11] MEDS: Sodium Phosphate/Na Biphos 30 MMOL in 0.9% Normal Saline (250mL Bag) 250 ML 62.5 MMOL IV (12:12)
[2023-06-11 12:31] LABS: Bedside Glucose 175 mg/dL (74-106)
--- NOTE | 2023-06-11 14:09 | STRESSREP_ITS ---
Stress Test Report Date: 06/11/2023 Procedure: Pharmacologic stress nuclear imaging study Indications: Dyspnea Consent: Per the patient Procedure: The patient underwent pharmacologic (Regadenoson 0.4mg ) evaluation with a peak heart rate of 86 beats per minute (62%predicted maximal heart rate) and a peak blood pressure of [] mmHg. The baseline ECG demonstrated []. The peak pharmacologic ECG demonstrated []. [There were no cardiac dysrhythmias pretest, during pharmacologic infusion, or recovery]. [There was no complaint of chest discomfort during pharmacologic infusion or recovery]. The patient was injected with [] millicuries of technetium 99m Cardiolite and subsequently rest SPECT Cardiolite nuclear imaging was obtained in the horizo ntal long, vertical long, and short axis views. The patient underwent pharmacologic (Regadenoson) evaluation. The patient was injected with [] millicuries of technetium 99m Cardiolite and subsequently stress SPECT Cardiolite nuclear imaging was obtained in the horizontal long, vertical long, and short axis views. A gated Cardiolite study at peak stress was obtained. The examination was stopped secondary to completion of protocol. Rest and stress SPECT Cardiolite nuclear imaging status post realignment, normalization, and attenuation correction demonstrate []. [There is end systolic thickening and brightening]. [The gated Cardiolite study demonstrates myocardial thickening and inward wall motion]. The reported LVEF is []%. Impression: 1. Pharmacologic (Regadenoson) evaluation 2. Peak pharmacologic ECG with []. 3. [There were no cardiac dysrhythmias pretest, during pharmacologic infusion, or recovery]. 5. [Rest and stress SPECT Cardiolite nuclear imaging demonstrate relative u niform tracer uptake and myocardial perfusion appearing within normal limits]. 6. The gated Cardiolite study reports an LVEF of []%. This note was generated with NetHooksation software. It may contain incorrect words, spelling, and punctuation that were not noted in checking the note before signing.
--- NOTE | 2023-06-11 14:09 | STRESSREP ---
Stress Test Report Date: 06/11/2023 Procedure: Pharmacologic stress nuclear imaging study Indications: Dyspnea Consent: Per the patient Procedure: The patient underwent pharmacologic (Regadenoson 0.4mg ) evaluation with a peak heart rate of 86 beats per minute (62%predicted maximal heart rate) and a peak blood pressure of 150/70 mmHg. The baseline ECG demonstrated sinus rhythm. The peak pharmacologic ECG demonstrated no ischemic changes. [There were no cardiac dysrhythmias pretest, during pharmacologic infusion, or recovery]. [There was no complaint of chest discomfort during pharmacologic infusion or recovery]. The patient was injected with 11.6 millicuries of technetium 99m Cardiolite and subsequently rest SPECT Cardiolite nuclear imaging was obtained in the horizontal long, vertical long, and short axis views. The patient underwent pharmacologic (Regadenoson) evaluation. The patient was injected with 34.1 millicuries of technetium 99m Cardiolite and subsequently stress SPECT Cardiolite nuclear imaging was obtained in the horizontal long, vertical long, and short axis views. A gated Cardiolite study at peak stress was obtained. The examination was stopped secondary to completion of protocol. Rest and stress SPECT Cardiolite nuclear imaging status post realignment, normalization, and attenuation correction demonstrate a very small apical defect. However with hyperdynamic LV, consider more as artifact. [There is end systolic thickening and brightening]. [The gated Cardiolite study demonstrates myocardial thickening and inward wall motion]. The reported LVEF is 79%. Impression: 1. Pharmacologic (Regadenoson) evaluation 2. Peak pharmacologic ECG with no ischemic. 3. [There were no cardiac dysrhythmias pretest, during pharmacologic infusion, or recovery]. 5. Very small apical defect on stress images. However with a hyperdynamic LV, particularly the apex, consider processing artifact. 6. The gated Cardiolite study reports an LVEF of 79%. This note was generated with Greenopediaation software. It may contain incorrect words, spelling, and punctuation that were not noted in checking the note before signing.
--- NOTE | 2023-06-11 15:59 | PCM.PN.HOSP ---
Reason for Visit Reason for Visit: Generalized weakness Subjective Subjective No issues overnight. It sounds like her loose stools are improving. She only had about 3 bouts yesterday. P.o. appetite still is not great. Did have a Tmax overnight of 102. Per the daughter at the bedside she typically is like this when she gets a urinary tract infection. Objective Data Objective Data Vital Signs: Vital Signs Temp Pulse Resp BP Pulse Ox O2 Del Method 99.2 F H 80 20 H 143/64 H 94 Room Air 06/11/23 11:00 06/11/23 11:00 06/11/23 11:00 06/11/23 11:00 06/11/23 11:00 06/11/23 11:00 Oxygen Delivery Method Room Air Weight: 66.5 kg Body Mass Index (BMI) 27.6 Intake & Output: Intake and Output for Last 24 Hours 06/09/23 06/10/23 06/11/23 23:59 23:59 23:59 Intake Total 2350 / 2400 2963.34 / 3063.34 1260 / 1260 Balance 2350 / 2400 2963.34 / 3063.34 1260 / 1260 Lab / Micro Data 06/11/23 06:57 06/11/23 06:57 Labs: Laboratory Results - last 24 hr 06/10/23 16:40: POC Glucose 200 H 06/10/23 20:27: POC Glucose 220 H 06/11/23 06:16: POC Glucose 156 H 06/11/23 06:57: WBC 2.6 L, RBC 3.65 L, Hgb 10.6 L, Hct 31.5 L, MCV 86.3, MCH 29.0, MCHC 33.7, RDW Std Deviation 41.6, RDW Coeff of [place] 13.2, Plt Count 77 L, MPV 11.0, Immature Gran % (Auto) 0.400, Neut % (Auto) 74.2 H, Lymph % (Auto) 18.9 L, [place] % (Auto) 5.7, Eos % (Auto) 0.0, Baso % (Auto) 0.8, Absolute Neuts (auto) 2.0, Absolute Lymphs (auto) 0.50 L, Nucleated RBC % 0, Differential Comment COMMENT, Diff Path Review May foll, Platelet Estimate MOD DEC, Sodium 132 L, Potassium 3.7, Chloride 103, Carbon Dioxide 23.0, Anion Gap 6, BUN 23 H, Creatinine 1.26 H, Estim Creat Clear Calc 25.53, Est GFR (MDRD) Af Amer 52 L, Est GFR (MDRD) Non-Af 43 L, BUN/Creatinine Ratio 18.3, Glucose 157 H, Calcium 8.0 L, Phosphorus 2.4 L, Magnesium 2.0, Total Bilirubin 0.50, AST 187 H, ALT 88 H, Alkaline Phosphatase 48, Total Creatine Kinase 6056 H, Total Protein 5.6 L, Albumin 2.4 L, Globulin 3.2, Albumin/Globulin Ratio 0.8 L, TSH 2.11 06/11/23 12:14: POC Glucose 175 H Micro: Microbiology 06/10/23 13:30 Mucosa - Nasopharyngeal Coronavirus COVID-19 PCR - Final 06/09/23 09:27 Urine, Random Urine Culture - Final Escherichia coli 06/10/23 13:40 Mucosa - Nose Respiratory Panel (PCR) - Final 06/09/23 13:43 Nasal Secretion SARS-CoV-2 & FLU Antigen (Rapid) - Final 06/09/23 05:10 Stool Stool Occult Blood (LETY) - Final Occult Blood Positive 06/09/23 06:23 Stool Stool Lactoferrin - Final 06/09/23 06:23 Stool Enteric Bacteriology - Final 06/09/23 06:23 Stool C. difficile DNA Amplification - Final Rhythm Strip Rhythm Strip: Sinus Rhythm Rate: 85 Ectopy: None Physical Exam Const alert, oriented x3, no apparent distress and well nourished Constitutional Narrative: Overweight, nontoxic elderly white female, lying in bed, appears comfortable but tired, daughter at bedside HEENT normocephalic, head/scalp atraumatic and moist oral mucous membranes HEENT Narrative: Mallampati 2 Resp normal respiratory effort, no retractions, no use of accessory muscles and clear to auscultation bilaterally Auscultation: Negative for rales, rhonchi or wheezes Cardio regular rate, regular rhythm, S1 normal heart sound, S2 normal heart sound, no murmurs, no rub, no gallops and no clicks GI normal to inspection, nondistended, normoactive bowel sounds, soft to palpation and non-tender Extremity normal to inspection and no clubbing, cyanosis or edema Neuro oriented x3, moves all extremities and no focal motor deficits Neuro Narrative: Significant generalized weakness noted with no focal deficits Speech: speech normal Psych Psych Narrative: Flat affect but appropriate for current situation Assessment & Plan Assessment/Plan (1) Generalized weakness: (2) Acute dyspnea: (3) Debility: (4) TODD (acute kidney injury): (5) Acute diarrhea: (6) Elevated troponin I level: (7) Acute dehydration: (8) Elevated serum creatinine: (9) Thrombocytopenia: (10) UTI (urinary tract infection): (11) Exertional dyspnea: (12) Acute anemia: PLAN: Plan Severe diarrhea -Lactoferrin was unremarkable -C. difficile and enteric panel are negative -Hemoccult is positive -KUB shows a nonobstructive bowel gas pattern -Will you normal saline at 75 cc/h -Diet per GI right now -Plans for colonoscopy tomorrow Acute anemia -Suspect some of this is dilutional however her Hemoccult stool was positive for blood -Continue IV Protonix 40 twice daily -Hemoglobin is stable -Patient is not anticoagulated at baseline -Will hold enoxaparin for DVT prophylaxis -GI following and plan is for at least EGD and colonoscopy tomorrow Elevated troponin level -Significance is unclear -Patient is not having chest pain and serum creatinine is elevated -Cardiac enzymes peaked at 138 now trending down in the setting of acute kidney injury -Chest x-ray is unremarkable -Echocardiogram shows an EF of 65% with stage I diastolic dysfunction and no regional wall motion abnormalities and a pulm artery systolic pressure of 26 mmHg -Stress test is negative Exertional dyspnea -Echo unremarkable -COVID rapid and PCR and flu rapid are negative -Respiratory viral panel is negative -CTA of the chest was overall unremarkable -This has evidently been not worsening with time -Stress test was unremarkable -If the rest of her workup is unremarkable here would recommend outpatient pulmonary follow-up for pulmonary function test E. coli UTI -Liver enzyme elevation with ceftriaxone -Will transition to ciprofloxacin -Await specific identification and sensitivities TODD -Baseline is unclear however admitting creatinine was 1.76 -Serum creatinine is down to 1.26 -IV fluids as ordered -Repeat in a.m. -Avoid nephrotoxins -Continue to hold HCTZ but restart home lisinopril Rhabdomyolysis -CK was elevated at greater than 9000 but now downtrending -Continue IV fluids at 50 cc/h over the next 4 hours specifically because we did give her some contrast to help flush out her kidneys -Renal function is normalizing Debility -PT/OT following and currently recommend ongoing therapy at the time of discharge -Case management/social work consultation for assistance with discharge planning Leukopenia/thrombocytopenia -Etiology is unclear--> May be related to acute infection -Baseline is unknown -Continue to monitor -Repeat lab in a.m. Hypertension -Continue to hold HCTZ -Restart home lisinopril -Continue home Coreg -As needed hydralazine for systolic pressure greater than 160 DM-2 -Hold home metformin -SSI -Will advance to cardiac/carb controlled diet once p.o. intake is tolerated well Hyperlipidemia -Continue home statin History of vascular dementia -Monitor DVT prophylaxis -SCDs -Hold enoxaparin with guaiac positive stool CODE STATUS -Full code is verified on presentation Charges/Coding Visit Charges Inpatient E&M: 58230 Subs Hosp L2
[2023-06-11] MEDS: Contrast Allergy Safety Check IV (17:05)
[2023-06-11] MEDS: Bisacodyl 5 MG Tablet 20 MG PO (17:06)
[2023-06-11] MEDS: Lisinopril 40 MG Tablet PO (17:06)
[2023-06-11 17:17] LABS: Bedside Glucose 148 mg/dL (74-106)
[2023-06-11] MEDS: Polyethylene Glycol 3350 BOWEL PREP PO (19:07)
[2023-06-11] MEDS: Atorvastatin Calcium 10 MG Tablet PO (21:32)
[2023-06-11] MEDS: Pramipexole Di-HCl 0.5 MG Tablet PO (21:33)
[2023-06-11] MEDS: Ciprofloxacin 400 MG/200 ML BAG 200 MG IV (21:41)
[2023-06-12] VITALS (10 sets, daily range): BP systolic 107–159; BP diastolic 54–70; PULSE 54–83; RESP 14–20; TEMP 36.2–37.1; O2SAT 93–100
[2023-06-12 00:22] LABS: Bedside Glucose 190 mg/dL (74-106)
[2023-06-12] MEDS: Insulin Lispro 100 UNIT/ML INSULN.PEN SC (06:35)
[2023-06-12 06:56] LABS: Absolute Lymphocyte Count 1.12 X10^3/uL (0.83-4.51); Absolute Neutrophil Count 1.5 X10^3/uL (2.0-7.7); Basophil# 0.01 X10^3/uL; Basophil% 0.4 % (0-1); Eosinophil# 0.03 X10^3/uL; Eosinophils% 1.1 % (0-5); Hematocrit 28.6 % (37-47); Hemoglobin 9.3 g/dL (12.0-15.0); Lymphocyte # 1.12 X10^3/ul (0.83-4.51); Lymphocyte % 40.1 % (19-41); Mean Corp Hgb Conc 32.5 g/dL (32-36); Mean Corpuscular Hgb 28.3 pg (27.0-32.0); Mean Corpuscular Volume 86.9 fL (81-99); Monocyte# 0.13 X10^3/uL; Monocyte% 4.7 % (0-10); NRBC Flagged by Analyzer 0 % (0-5); Neutrophil # 1.49 X10^3/uL (2.7-7.7); Neutrophil % 53.3 % (47-70); POSITIVE COUNT YES; POSITIVE MORPHOLOGY YES; Platelet Count 74 K/mm3 (150-450); RBC Distribution Width CV 13.2 % (11.6-14.6); RBC Distribution Width SD 42.3 fl (35.1-43.9); Red Blood Count 3.29 M/mm3 (4.2-5.4); White Blood Count 2.8 K/mm3 (4.4-11.0)
[2023-06-12 06:59] LABS: Differential Indicated SCAN CRITERIA MET
[2023-06-12 07:08] LABS: Bedside Glucose 209 mg/dL (74-106)
[2023-06-12 07:14] LABS: Differential Comment SCANNED
[2023-06-12 07:26] LABS: ALB/GLOB Ratio 0.7 RATIO (0.9-2.4); AST(SGOT) 148 U/L (15-37); Alanine Aminotransfer ALT/SGPT 86 U/L (13-56); Albumin, Serum 2.3 g/dL (3.2-5.0); Alkaline Phosphatase 48 U/L (45-117); Anion Gap 6 (5-15); BUN 20 mg/dL (7-18); BUN/Creat Ratio 16.1 RATIO (10-20); Calcium,Total 7.7 mg/dL (8.5-10.1); Chloride 107 mmol/L (98-107); Creatinine, Serum 1.24 mg/dL (0.55-1.02); EST Glomerular Filtration Rate 44 mL/min (>60); Est Glom Filt Rate - Afr Amer 53 mL/min (>60); Estimated Creatinine Clearance 25.94 ml/min; Globulin 3.1 g/dL (2.2-4.2); Glucose 213 mg/dL (74-106); Potassium 3.1 mmol/L (3.5-5.1); Protein, Total 5.4 g/dL (6.4-8.2); Sodium Level 134 mmol/L (136-145)
[2023-06-12 08:16] LABS: Hemoglobin A1c 8.5 % (3.8-5.6)
[2023-06-12] MEDS: Carvedilol 25 MG Tablet PO ×2 (09:29→22:43)
[2023-06-12] MEDS: Pantoprazole Sodium 40 MG in 0.9% Normal Saline (100mL MB+) 100 ML 330 MG IV ×2 (09:32→21:09)
[2023-06-12] MEDS: Ciprofloxacin 400 MG/200 ML BAG 200 MG IV ×2 (09:34→22:45)
[2023-06-12] MEDS: 0.9% Normal Saline (1000mL) 1,000 ML 75 ML IV (11:19)
[2023-06-12 11:34] LABS: Bedside Glucose 178 mg/dL (74-106)
--- NOTE | 2023-06-12 12:55 | PN.HOSP_ITS ---
Reason for Visit Reason for Visit: Generalized weakness/syncope Subjective Subjective Patient is clinically feeling better. Plan is for colonoscopy and EGD today. Seems to be a little bit stronger. Afebrile x 24 hours now. Hopeful that she will be able to go home and not need skilled facility at discharge. Objective Data Objective Data Vital Signs: Vital Signs Temp Pulse Resp BP Pulse Ox O2 Del Method 97.6 F L 63 16 142/70 H 98 Room Air 06/12/23 09:34 06/12/23 09:34 06/12/23 09:34 06/12/23 09:34 06/12/23 09:34 06/12/23 09:34 Oxygen Delivery Method Room Air Weight: 70.1 kg Body Mass Index (BMI) 29.2 Intake & Output: Intake and Output for Last 24 Hours 06/10/23 06/11/23 06/12/23 23:59 23:59 23:59 Intake Total 2963.34 / 3063.34 2611.25 / 2611.25 1303.75 / 1303.75 Balance 2963.34 / 3063.34 2611.25 / 2611.25 1303.75 / 1303.75 Lab / Micro Data 06/12/23 06:40 06/12/23 06:40 Labs: Laboratory Results - last 24 hr 06/11/23 16:58: POC Glucose 148 H 06/11/23 21:22: POC Glucose 190 H 06/12/23 06:34: POC Glucose 209 H 06/12/23 06:40: WBC 2.8 L, RBC 3.29 L, Hgb 9.3 L, Hct 28.6 L, MCV 86.9, MCH 28.3, MCHC 32.5, RDW Std Deviation 42.3, RDW Coeff of [place] 13.2, Plt Count 74 L, MPV 11.0, Immature Gran % (Auto) 0.400, Neut % (Auto) 53.3, Lymph % (Auto) 40.1, [place] % (Auto) 4.7, Eos % (Auto) 1.1, Baso % (Auto) 0.4, Absolute Neuts (auto) 1.5 L, Absolute Lymphs (auto) 1.12, Nucleated RBC % 0, Differential Comment SCANNED, Sodium 134 L, Potassium 3.1 L, Chloride 107, Carbon Dioxide 21.0, Anion Gap 6, BUN 20 H, Creatinine 1.24 H, Estim Creat Clear Calc 25.94, Est GFR (MDRD) Af Amer 53 L, Est GFR (MDRD) Non-Af 44 L, BUN/Creatinine Ratio 16.1, Glucose 213 H, Hemoglobin A1c 8.5 H, Calcium 7.7 L, Total Bilirubin 0.30, AST 148 H, ALT 86 H, Alkaline Phosphatase 48, Total Protein 5.4 L, Albumin 2.3 L, Globulin 3.1, Albumin/Globulin Ratio 0.7 L 06/12/23 11:16: POC Glucose 178 H Micro: Microbiology 06/10/23 13:30 Mucosa - Nasopharyngeal Coronavirus COVID-19 PCR - Final 06/09/23 09:27 Urine, Random Urine Culture - Final Escherichia coli 06/10/23 13:40 Mucosa - Nose Respiratory Panel (PCR) - Final 06/09/23 13:43 Nasal Secretion SARS-CoV-2 & FLU Antigen (Rapid) - Final 06/09/23 05:10 Stool Stool Occult Blood (LETY) - Final Occult Blood Positive 06/09/23 06:23 Stool Stool Lactoferrin - Final 06/09/23 06:23 Stool Enteric Bacteriology - Final 06/09/23 06:23 Stool C. difficile DNA Amplification - Final Rhythm Strip Rhythm Strip: Sinus Rhythm Rate: 85 Ectopy: None Physical Exam Const alert, oriented x3, no apparent distress and well nourished Constitutional Narrative: Overweight, nontoxic elderly white female, lying in bed, appears comfortable, appears less tired today and a little bit perkier, daughter at bedside HEENT normocephalic, head/scalp atraumatic and moist oral mucous membranes HEENT Narrative: No thrush, Mallampati 2-3 Resp normal respiratory effort, no retractions, no use of accessory muscles and clear to auscultation bilaterally Resp Narrative: Auscultation: Negative for rales, rhonchi or wheezes Cardio regular rate, regular rhythm, S1 normal heart sound, S2 normal heart sound, no murmurs, no rub, no gallops and no clicks GI normal to inspection, nondistended, normoactive bowel sounds, soft to palpation and non-tender Extremity no clubbing, cyanosis or edema Neuro oriented x3, moves all extremities and no focal motor deficits Neuro Narrative: Significant generalized weakness noted with no focal deficits Speech: speech normal Psych Psych Narrative: Much more interactive and less flat today Assessment & Plan Assessment/Plan (1) Generalized weakness: (2) Acute dyspnea: (3) Debility: (4) TODD (acute kidney injury): (5) Acute diarrhea: (6) Elevated troponin I level: (7) Acute dehydration: (8) Elevated serum creatinine: (9) Thrombocytopenia: (10) UTI (urinary tract infection): (11) Exertional dyspnea: (12) Acute anemia: PLAN: Plan Severe diarrhea -Diarrhea has now resolved -Lactoferrin was unremarkable -C. difficile and enteric panel are negative -Hemoccult is positive -KUB shows a nonobstructive bowel gas pattern -Continue IV fluids until p.o. diet can be initiated -N.p.o. for right now -Plans for colonoscopy today Acute anemia -Suspect some of this is dilutional however her Hemoccult stool was positive for blood -Continue IV Protonix 40 twice daily -Hemoglobin is stable -Patient is not anticoagulated at baseline -Will hold enoxaparin for DVT prophylaxis -GI following and plan is for at least EGD and colonoscopy tomorrow Elevated troponin level -Significance is unclear -Patient is not having chest pain and serum creatinine is elevated -Cardiac enzymes peaked at 138 now trending down in the setting of acute kidney injury -Chest x-ray is unremarkable -Echocardiogram shows an EF of 65% with stage I diastolic dysfunction and no regional wall motion abnormalities and a pulm artery systolic pressure of 26 mmHg -Stress test is negative Exertional dyspnea -Echo unremarkable -COVID rapid and PCR and flu rapid are negative -Respiratory viral panel is negative -CTA of the chest was overall unremarkable -This has evidently been not worsening with time -Stress test was unremarkable -If the rest of her workup is unremarkable here would recommend outpatient pulmonary follow-up for pulmonary function test E. coli UTI -Liver enzyme elevation with ceftriaxone -Will transition to ciprofloxacin -Await specific identification and sensitivities TODD -Baseline is unclear however admitting creatinine was 1.76 -Serum creatinine is down to 1.26 -IV fluids as ordered -Repeat in a.m. -Avoid nephrotoxins -Continue to hold HCTZ but restart home lisinopril Rhabdomyolysis -CK was elevated at greater than 9000 but now downtrending -Continue IV fluids at 50 cc/h over the next 4 hours specifically because we did give her some contrast to help flush out her kidneys -Renal function is normalizing Debility -PT/OT following and currently recommend ongoing therapy at the time of discharge -Case management/social work consultation for assistance with discharge planning Leukopenia/thrombocytopenia -Etiology is unclear--> May be related to acute infection -Baseline is unknown -Continue to monitor -Repeat lab in a.m. Hypertension -Continue to hold HCTZ -Restart home lisinopril -Continue home Coreg -As needed hydralazine for systolic pressure greater than 160 DM-2 -Hold home metformin -SSI -Will advance to cardiac/carb controlled diet once p.o. intake is tolerated well Hyperlipidemia -Continue home statin History of vascular dementia -Monitor DVT prophylaxis -SCDs -Hold enoxaparin with guaiac positive stool CODE STATUS -Full code is verified on presentation Charges/Coding Visit Charges Inpatient E&M: 21427 Subs Hosp L2
[2023-06-12 14:09] LABS: Pathologist Review Reviewed
--- NOTE | 2023-06-12 14:30 | CASEMGMT ---
Patient has a Healthcare Power of Customer Advocate and a Healthcare Living Will. SW notified patient and her daughter that patient's Healthcare Power of Customer Advocate and Healthcare Living Will are not on file at [facility] and to bring in a copy. Hafsa Tolbert GLOBAL PROGRAM MANAGER JENNIFER
--- NOTE | 2023-06-12 15:28 | CASEMGMT ---
Discharge Planning A list of HH providers including quality and resource use data and consistent with the patient's preferred geographic region, medical needs, and insurance network was created in [employer].? This list was provided to the RN ZANA. Aubree Moncada, Discharge Planning Asst.
[2023-06-12 15:30] LABS: Bedside Glucose 168 mg/dL (74-106)
--- NOTE | 2023-06-12 16:15 | IMM_PTH ---
PATIENT: ANIL DENNIS LOC: [facility] U#:[id number] AGE/SX: 82/F ROOM: [facility] RE06/09/[address]: Dr. Quan Frank DO : 1940 BED: 1 DIS: 06/13/2023 SPEC #: [id number] RECD: 06/13/23 14:08 STATUS: SAMEER REMeg #: [id number] CHRIS: 06/12/23 16:[address]: Ra Iraishsaan DEPT: IMMUNOHISTOCHEMISTRY RECD BY: Tigist Mills ENTERED: 06/13/23 14:10 SP TYPE: IMMUNO OTHR DR: DO Dr. Mignon Lemus DO Dr. Mark Tereletsky, DO Tissues: A - Pyloric sphincter Procedures: H Pylori (initial) PHYSICIAN & INSTITUTION [place] [address] SPECIMEN INFORMATION: Tissue Source: B - Pyloric sphincter ulcer Clinical Info: Anemia, diarrhea Specimen Number: [id number] CPT code: 28967 METHODOLOGY: Deparaffinized sections of prefer/formalin-fixed tissue or PAP/DQ stained slides are incubated with monoclonal/polyclonal antibodies/oligonucleotide probes. Localization is made via biotin free immunoperoxidase method. Appropriate controls are performed and reacted as expected. Results on target cell population are indicated in the following table: RESULTS: ANTIBODY / CLONE RESULT Block B H Pylori (polyclonal) negative These tests were developed and their performance characteristics determined by [facility]. They may not have been cleared or approved by the U.S. Food and Drug Administration. The FDA has determined that such clearance or approval is not necessary. The above immunohistochemical/dualISH markers are ordered and reviewed by the Pathologist. INTERPRETATION: B. Pyloric sphincter ulcer, biopsy: Negative for Helicobacter pylori organisms. AM:abdulaziz 06/14/2023
--- NOTE | 2023-06-12 16:15 | COLBX_PTH ---
PATIENT: ANIL DENNIS LOC: [facility] U#:[id number] AGE/SX: 82/F ROOM: [facility] RE06/09/[address]: Dr. Quan Frank DO : 1940 BED: 1 DIS: 06/13/2023 SPEC #: [id number] RECD: 06/13/23 07:51 STATUS: SAMEER ORTIZ #: [id number] CHRIS: 06/12/23 16:[address]: Tin Braxton DEPT: SURGICAL PATHOLOGY RECD BY: Isabell Torres ENTERED: 06/13/23 07:52 SP TYPE: COLON BX OTHR DR: Dr. Lyle Montalvo, DO Dr. Mignon France, DO Dr. Quan Frank DO Tissues: A - Pyloric sphincter B - COLON BIOPSY C - Cecum, NOS Procedures: Surgery Specimen Level IV Comments: @ Ordering doctor for SUIV edited from to @ by FRANKLYN at 06/13/23 1408 @ Submitting doctor edited from to @ by RGOOD at 06/13/23 1408 HEADER OPERATION: Colonoscopy with biopsy, EGD with biopsy PRE-OP DIAGNOSIS: Anemia, diarrhea TISSUE SUBMITTED: A - Pyloric sphincter ulcer biopsy, B - Random colon biopsies, C - Cecal polyp biopsy MICROSCOPIC DIAGNOSIS A. Pyloric sphincter ulcer, biopsy: Chronic gastritis. See comment. B. Colon, random biopsy: No significant pathologic change. See comment. C. Cecal polyp, biopsy: Polypoid fragment of benign colonic mucosa. See comment. AM:abdulaziz 06/14/2023 COMMENT A. The results of immunohistochemistry for Helicobacter pylori will be reported separately ([id number]). B. 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 Clinical correlation is suggested. C. Neither hyperplastic nor adenomatous change is identified. Clinical correlation is suggested. MICROSCOPIC DESCRIPTION Slides are reviewed. GROSS DESCRIPTION A - Received in fixative is one container labeled with the patient's name and designated pyloric sphincter biopsy. The specimen consists of two irregular fragments of light mane soft tissue that in aggregate measure 0.6 x 0.5 x 0.1 cm. The specimen is totally submitted in one cassette. B - Received in fixative is one container labeled with the patient's name and designated random colon biopsy. The specimen consists of multiple irregular fragments of light mane soft tissue that in aggregate measure 1.0 x 0.5 x 0.1 cm. The specimen is totally submitted in one cassette. C - Received in fixative is one container labeled with the patient's name and designated cecal polyp. The specimen consists of one irregular fragment of light mane soft tissue that measures 0.5 x 0.3 x 0.1 cm. The specimen is totally submitted in one cassette. / AM:abdulaziz 06/13/2023 TC:3 CPT: 88672 x3
--- NOTE | 2023-06-12 17:21 | OP.CCLET_ITS ---
06/12/2023 Agnes Re : Upper GI endoscopy procedure for Mabel Colopy Dear Agnes This procedure was performed on Monday, June 12, 2023. My impressions and recommendations are as follows: Impressions : - Moderate Schatzki ring. Dilated. - Medium-sized hiatal hernia. - Oozing gastric ulcers with pigmented material. Injected. Treated with a heater probe. - Non-bleeding gastric ulcer with no stigmata of bleeding. Biopsied. - Normal second portion of the duodenum. Recommendations : - Return patient to hospital [facility] for ongoing care. - Resume regular diet. - Continue present medications. - Await pathology results. My findings are described in the full procedure note, which is enclosed. If I can be of further assistance, please feel free to contact me at . Sincerely, Tin Braxton, 06/12/2023 5:20:48 PM This report has been signed electronically.
--- NOTE | 2023-06-12 17:21 | OP.EGD_ITS ---
Patient Name: Mabel Colopy Procedure Date: 06/12/2023 4:49 PM Date of : 1940 Age: 82 Procedure: Upper GI endoscopy Indications: Epigastric abdominal pain, Dyspepsia Providers: Tin Braxton DO Referring MD: Lyle Montalvo DO Medicines: Monitored Anesthesia Care Patient Profile: This is an 82 year old female. Refer to note in patient chart for documentation of history and physical. Patient has symptoms of acute dyspepsia and acute nausea. Complications: No immediate complications. Procedure: Pre-Anesthesia Assessment: - Prior to the procedure, a History and Physical was performed, and patient medications and allergies were reviewed. The patient is competent. The risks and benefits of the procedure and the sedation options and risks were discussed with the patient. All questions were answered and informed consent was obtained. Patient identification and proposed procedure were verified by the physician in the pre-procedure area. Mental Status Examination: alert and oriented. Airway Examination: normal oropharyngeal airway and neck mobility. Respiratory Examination: clear to auscultation. CV Examination: normal. Prophylactic Antibiotics: The patient does not require prophylactic antibiotics. Prior Anticoagulants: The patient has taken no anticoagulant or antiplatelet agents. ASA Grade Assessment: III - A patient with severe systemic disease. After reviewing the risks and benefits, the patient was deemed in satisfactory condition to undergo the procedure. The anesthesia plan was to use monitored anesthesia care (MAC). Immediately prior to administration of medications, the patient was re-assessed for adequacy to receive sedatives. The heart rate, respiratory rate, oxygen saturations, blood pressure, adequacy of pulmonary ventilation, and response to care were monitored throughout the procedure. The physical status of the patient was re-assessed after the procedure. After obtaining informed consent, the endoscope was passed under direct vision. Throughout the procedure, the patient's blood pressure, pulse, and oxygen saturations were monitored continuously. The colonoscope was introduced through the mouth, and advanced to the second part of duodenum. The upper GI endoscopy was accomplished without difficulty. The patient tolerated the procedure well. Scope In: 4:57:45 PM Scope Out: 4:59:45 PM Total Procedure Duration Time 0 hours 2 minutes 0 seconds Findings: A moderate Schatzki ring was found in the lower third of the esophagus. A guidewire was placed and the scope was withdrawn. Dilation was performed with a Savary dilator with no resistance at 45 Fr. The dilation site was examined and showed moderate mucosal disruption. Estimated blood loss was minimal. A medium-sized hiatal hernia was present. Two oozing linear gastric ulcers with pigmented material were found at the pylorus. The largest lesion was 6 mm in largest dimension. Area was successfully injected with 5 mL of a 0.1 mg/mL solution of epinephrine for drug delivery. Coagulation for hemostasis using heater probe was successful. Estimated blood loss was minimal. One non-bleeding superficial gastric ulcer with no stigmata of bleeding was found in the prepyloric region of the stomach. The lesion was 5 mm in largest dimension. Biopsies were taken with a cold forceps for histology. Verification of patient identification for the specimen was done. Estimated blood loss was minimal. Biopsies were taken with a cold forceps for Helicobacter pylori testing. Verification of patient identification for the specimen was done. Estimated blood loss was minimal. The second portion of the duodenum was normal. Impression: - Moderate Schatzki ring. Dilated. - Medium-sized hiatal hernia. - Oozing gastric ulcers with pigmented material. Injected. Treated with a heater probe. - Non-bleeding gastric ulcer with no stigmata of bleeding. Biopsied. - Normal second portion of the duodenum. Recommendation: - Return patient to hospital [facility] for ongoing care. - Resume regular diet. - Continue present medications. - Await pathology results. Procedure Code(s): --- Professional --- 10066, 59, Esophagogastroduodenoscopy, flexible, transoral; with control of bleeding, any method 36215, Esophagogastroduodenoscopy, flexible, transoral; with insertion of guide wire followed by passage of dilator(s) through esophagus over guide wire 95323, 59, Esophagogastroduodenoscopy, flexible, transoral; with biopsy, single or multiple 94993, 59,51, Esophagogastroduodenoscopy, flexible, transoral; with directed submucosal injection(s), any substance CPT copyright 2021 [employer]. All rights reserved. The codes documented in this report are preliminary and upon professional fee coder review may be revised to meet current compliance requirements. Tin Braxton DO 06/12/2023 5:20:48 PM This report has been signed electronically. Number of Addenda: 0 Note Initiated On: 06/12/2023 4:49 PM
--- NOTE | 2023-06-12 17:25 | OP.COLON_ITS ---
Patient Name: Mabel Colopy Procedure Date: 06/12/2023 4:59 PM Date of : 1940 Age: 82 Procedure: Colonoscopy Indications: Clinically significant diarrhea of unexplained origin Providers: Tin Braxton DO Referring MD: Lyle Montalvo DO Medicines: Monitored Anesthesia Care Patient Profile: This is an 82 year old female. Refer to note in patient chart for documentation of history and physical. Patient has symptoms of acute dyspepsia and acute nausea. Last Colonoscopy: several years ago. Complications: No immediate complications. Procedure: Pre-Anesthesia Assessment: - Prior to the procedure, a History and Physical was performed, and patient medications and allergies were reviewed. The patient is competent. The risks and benefits of the procedure and the sedation options and risks were discussed with the patient. All questions were answered and informed consent was obtained. Patient identification and proposed procedure were verified by the physician in the pre-procedure area. Mental Status Examination: alert and oriented. Airway Examination: normal oropharyngeal airway and neck mobility. Respiratory Examination: clear to auscultation. CV Examination: normal. Prophylactic Antibiotics: The patient does not require prophylactic antibiotics. Prior Anticoagulants: The patient has taken no anticoagulant or antiplatelet agents. ASA Grade Assessment: III - A patient with severe systemic disease. After reviewing the risks and benefits, the patient was deemed in satisfactory condition to undergo the procedure. The anesthesia plan was to use monitored anesthesia care (MAC). Immediately prior to administration of medications, the patient was re-assessed for adequacy to receive sedatives. The heart rate, respiratory rate, oxygen saturations, blood pressure, adequacy of pulmonary ventilation, and response to care were monitored throughout the procedure. The physical status of the patient was re-assessed after the procedure. After I obtained informed consent, the scope was passed under direct vision. Throughout the procedure, the patient's blood pressure, pulse, and oxygen saturations were monitored continuously. The colonoscope was introduced through the anus and advanced to the cecum, identified by appendiceal orifice and ileocecal valve. The colonoscopy was performed without difficulty. The patient tolerated the procedure well. The quality of the bowel preparation was adequate. The ileocecal valve, appendiceal orifice, and rectum were photographed. Retroflexion was not performed in the rectum due to a very small rectum. Scope In: 5:01:15 PM Scope Withdrawal Time 0 hours 5 minutes 32 seconds Scope Out: 5:14:12 PM Total Procedure Duration Time 0 hours 12 minutes 57 seconds Findings: The perianal and digital rectal examinations were normal. Multiple small and large-mouthed diverticula were found in the recto-sigmoid colon and sigmoid colon. An area of mildly congested mucosa was found in the entire colon. Biopsies for histology were taken with a cold forceps from the entire colon for evaluation of microscopic colitis. Verification of patient identification for the specimen was done. Estimated blood loss was minimal. A 3 mm polyp was found in the cecum. The polyp was sessile. The polyp was removed with a cold snare. Resection and retrieval were complete. Verification of patient identification for the specimen was done. Estimated blood loss was minimal. Two medium-sized localized angiodysplastic lesions with bleeding were found in the cecum. Coagulation for hemostasis using heater probe was successful. Estimated blood loss was minimal. Impression: - Diverticulosis in the recto-sigmoid colon and in the sigmoid colon. - Congested mucosa in the entire examined colon. Biopsied. - One 3 mm polyp in the cecum, removed with a cold snare. Resected and retrieved. - Two bleeding colonic angiodysplastic lesions. Treated with a heater probe. Recommendation: - Return patient to hospital [facility] for ongoing care. - Resume previous diet. - Continue present medications. - Await pathology results. - Repeat colonoscopy in 5 years for surveillance. Procedure Code(s): --- Professional --- 78441, 59, Colonoscopy, flexible; with control of bleeding, any method 24057, Colonoscopy, flexible; with removal of tumor(s), polyp(s), or other lesion(s) by snare technique 27913, 59, Colonoscopy, flexible; with biopsy, single or multiple CPT copyright 2021 [employer]. All rights reserved. The codes documented in this report are preliminary and upon brake operator helper review may be revised to meet current compliance requirements. Tin Braxton DO 06/12/2023 5:24:35 PM This report has been signed electronically. Number of Addenda: 0 Note Initiated On: 06/12/2023 4:59 PM
--- NOTE | 2023-06-12 17:25 | OP.CCLET_ITS ---
06/12/2023 Dldeion Alarcon Re : Colonoscopy procedure for Mabel Colopy Dear Agnes This procedure was performed on Monday, June 12, 2023. My impressions and recommendations are as follows: Impressions : - Diverticulosis in the recto-sigmoid colon and in the sigmoid colon. - Congested mucosa in the entire examined colon. Biopsied. - One 3 mm polyp in the cecum, removed with a cold snare. Resected and retrieved. - Two bleeding colonic angiodysplastic lesions. Treated with a heater probe. Recommendations : - Return patient to hospital [facility] for ongoing care. - Resume previous diet. - Continue present medications. - Await pathology results. - Repeat colonoscopy in 5 years for surveillance. My findings are described in the full procedure note, which is enclosed. If I can be of further assistance, please feel free to contact me at . Sincerely, Tin Friend, 06/12/2023 5:24:35 PM This report has been signed electronically.
[2023-06-12] MEDS: Lisinopril 40 MG Tablet PO (18:02)
[2023-06-12] MEDS: Aspirin E.C. 81 MG Tablet PO (18:02)
[2023-06-12 18:23] LABS: Bedside Glucose 153 mg/dL (74-106)
[2023-06-12] MEDS: Potassium Chloride Oral Tablet 20 MEQ 40 MEQ PO (18:44)
[2023-06-12] MEDS: Colestipol 1 GM TABLET PO (18:44)
[2023-06-12] MEDS: Atorvastatin Calcium 10 MG Tablet PO (22:43)
[2023-06-12] MEDS: Pramipexole Di-HCl 0.5 MG Tablet PO (22:43)
[2023-06-12] MEDS: 0.9% Saline Lock 10 ML Syringe IV (22:44)
[2023-06-12 23:06] LABS: Bedside Glucose 170 mg/dL (74-106)
[2023-06-13 05:25] VITALS: BP 149/52; PULSE 61; RESP 18; TEMP 36.5; O2SAT 96
[2023-06-13] MEDS: Colestipol 1 GM TABLET PO (05:30)
[2023-06-13] MEDS: Insulin Lispro 100 UNIT/ML INSULN.PEN SC ×2 (06:29→10:37)
[2023-06-13 06:49] LABS: Bedside Glucose 155 mg/dL (74-106)
[2023-06-13 07:19] LABS: Absolute Lymphocyte Count 1.51 X10^3/uL (0.83-4.51); Absolute Neutrophil Count 2.2 X10^3/uL (2.0-7.7); Basophil# 0.01 X10^3/uL; Basophil% 0.2 % (0-1); Eosinophil# 0.24 X10^3/uL; Eosinophils% 5.6 % (0-5); Hematocrit 25.5 % (37-47); Hemoglobin 8.6 g/dL (12.0-15.0); Lymphocyte # 1.51 X10^3/ul (0.83-4.51); Lymphocyte % 35.5 % (19-41); Mean Corp Hgb Conc 33.7 g/dL (32-36); Mean Corpuscular Hgb 29.2 pg (27.0-32.0); Mean Corpuscular Volume 86.4 fL (81-99); Mean Platelet Vol. 11.3 fl (6.2-12.0); Monocyte# 0.25 X10^3/uL; Monocyte% 5.9 % (0-10); NRBC Flagged by Analyzer 0 % (0-5); Neutrophil # 2.23 X10^3/uL (2.7-7.7); Neutrophil % 52.6 % (47-70); POSITIVE COUNT YES; POSITIVE MORPHOLOGY YES; Platelet Count 91 K/mm3 (150-450); RBC Distribution Width CV 13.5 % (11.6-14.6); Red Blood Count 2.95 M/mm3 (4.2-5.4); White Blood Count 4.3 K/mm3 (4.4-11.0)
[2023-06-13 07:35] LABS: Differential Indicated SCAN CRITERIA MET
[2023-06-13 07:41] LABS: ALB/GLOB Ratio 0.7 RATIO (0.9-2.4); AST(SGOT) 102 U/L (15-37); Alanine Aminotransfer ALT/SGPT 77 U/L (13-56); Alkaline Phosphatase 45 U/L (45-117); Anion Gap 6 (5-15); BUN 18 mg/dL (7-18); BUN/Creat Ratio 16.8 RATIO (10-20); Calcium,Total 7.6 mg/dL (8.5-10.1); Chloride 112 mmol/L (98-107); Creatinine, Serum 1.07 mg/dL (0.55-1.02); EST Glomerular Filtration Rate 52 mL/min (>60); Est Glom Filt Rate - Afr Amer 63 mL/min (>60); Estimated Creatinine Clearance 30.06 ml/min; Globulin 2.8 g/dL (2.2-4.2); Glucose 162 mg/dL (74-106); Potassium 3.7 mmol/L (3.5-5.1); Protein, Total 4.8 g/dL (6.4-8.2); Sodium Level 138 mmol/L (136-145)
[2023-06-13 08:18] LABS: Platelet Estimate MOD DEC (ADEQ); Reactive Lymphocyte RARE
[2023-06-13 08:40] VITALS: O2SAT 94
[2023-06-13 09:07] VITALS: BP 92/76; PULSE 68; RESP 18; TEMP 37.1; O2SAT 98
[2023-06-13] MEDS: hydroCHLOROthiazide 25 MG Tablet PO (09:11)
[2023-06-13] MEDS: Lisinopril 40 MG Tablet PO (09:13)
[2023-06-13] MEDS: Aspirin E.C. 81 MG Tablet PO (09:13)
[2023-06-13] MEDS: Pantoprazole Sodium 40 MG in 0.9% Normal Saline (100mL MB+) 100 ML 330 MG IV (09:13)
[2023-06-13] MEDS: Ciprofloxacin 400 MG/200 ML BAG 200 MG IV (09:14)
--- NOTE | 2023-06-13 09:30 | CASEMGMT ---
JAYLENE CM in to discuss discharge planning with patient and daughter. Patient wishes to discharge home with [facility]. List provided to patient. Patient would like [facility]. Patient will need walker at discharge, agreeable to [facility]. Patient had no further questions or concerns at this time. Script received for walker and referral sent to [facility] and arranged for delivery. Discharge curriculum assistant principal to send referral to [facility]. CM will continue to follow this patient and plan for a safe discharge.
[2023-06-13 11:16] LABS: Bedside Glucose 214 mg/dL (74-106)
--- NOTE | 2023-06-13 11:22 | DCINST_ITS ---
Discharge Instructions Diet Discharge Diet: 1800 Calorie Control Diet Activity Discharge Activity: Return to Normal Activity Weight Bearing Status: Full weight bearing Follow Up Care Test Results: Test results from this visit will be discussed in further detail at your follow- up appointment, if applicable. Discharge Plan Admission Admit Date/Time: 06/09/23 05:45 Primary Reason for Your Visit: Severe diarrhea-probable viral, anemia secondary to gastric ulcer Attending Provider: Quan Frank Primary Care Provider: PARVIZ PEREIRA Consulting Providers: Lyle Montalvo; Mignon France Instructions Additional Instructions / Restrictions: Follow-up with your primary care doctor in 1 week, get a CBC repeated Follow-up with Dr. Braxton in 3 to 4 weeks Discharge Orders/Prescriptions Prescriptions: New pantoprazole [Protonix] 40 mg tablet,delayed release (DR/EC) 40 mg PO DAILY Qty: 30 0RF cephalexin 500 mg capsule 500 mg PO TID Qty: 14 0RF Rx Instructions: Start on 06/13/2023-take 2 doses on that day Continued carvedilol 25 mg tablet 25 mg PO Q12H Patient Comments: TAKE ONE TABLET BY MOUTH TWICE DAILY hydrochlorothiazide 25 mg tablet 25 mg PO DAILY Patient Comments: TAKE ONE TABLET BY MOUTH DAILY lisinopril 40 mg tablet 40 mg PO DAILY Patient Comments: TAKE ONE TABLET BY MOUTH DAILY simvastatin 20 mg tablet 20 mg PO DAILY Patient Comments: TAKE ONE TABLET BY MOUTH DAILY metformin 500 mg tablet 500 mg PO BIDAC Patient Comments: TAKE ONE TABLET BY MOUTH TWICE DAILY Referrals / Follow Up: PARVIZ PEREIRA [Other] PARVIZ PEREIRA [Other] Tin Braxton DO [Med Staff - Active Staff] - See Referral Note (In 3 to 4 weeks) Disposition Disposition (needs filled in before D/C Order can be placed): Home, Self Care
--- NOTE | 2023-06-13 11:35 | DS.PCM_ITS ---
Providers Date of Admission: 06/09/23 Date of Discharge: 06/13/23 Primary Care Physician: PARVIZ PEREIRA Consultations 06/10/23 07:15 Consult: Gastroenterology Routine Consulting Provider: [facility] Reason for Consult: heme + stool with Hgb drop EMERGENT Consult: No MD Notified: Yes Date Notified: 06/10/23 Time Notified: 07:15 Method of Notification: Text Reason For Visit: ABNORMAL TROPONINS Diagnosis Discharge Diagnosis (1) Generalized weakness: Status: Acute Code(s): R53.1 - Weakness (2) Acute dyspnea: Status: Deleted Code(s): R06.00 - Dyspnea, unspecified (3) Debility: Status: Acute Code(s): R53.81 - Other malaise (4) TODD (acute kidney injury): Status: Acute Code(s): N17.9 - Acute kidney failure, unspecified (5) Acute diarrhea: Status: Acute Code(s): R19.7 - Diarrhea, unspecified (6) Elevated troponin I level: Status: Acute Code(s): R79.89 - Other specified abnormal findings of blood chemistry (7) Acute dehydration: Status: Acute Code(s): E86.0 - Dehydration (8) Elevated serum creatinine: Status: Deleted Code(s): R79.89 - Other specified abnormal findings of blood chemistry (9) Thrombocytopenia: Status: Acute Code(s): D69.6 - Thrombocytopenia, unspecified (10) UTI (urinary tract infection): Status: Acute Code(s): N39.0 - Urinary tract infection, site not specified (11) Exertional dyspnea: Status: Acute Code(s): R06.09 - Other forms of dyspnea (12) Acute anemia: Status: Acute Code(s): D64.9 - Anemia, unspecified Plan 1. Viral gastroenteritis #2 acute kidney injury #3 elevated troponin-etiology unclear #4 hypokalemia #5 acute cystitis secondary to E. coli #6 essential hypertension #7 angiodysplastic lesions of the colon #8 gastric ulcers with acute bleeding #9 acute blood loss anemia secondary to gastric ulcer with acute bleeding Medications at Discharge Home Medications carvedilol 25 mg tablet 25 mg PO Q12H blood pressure 06/09/23 hydrochlorothiazide 25 mg tablet 25 mg PO DAILY diuretic 12/02/23 lisinopril 40 mg tablet 40 mg PO DAILY blood pressure 06/09/23 metformin 500 mg tablet 500 mg PO BIDAC diabetes 06/09/23 simvastatin 20 mg tablet 20 mg PO DAILY cholesterol 06/09/23 cephalexin 500 mg capsule 500 mg PO TID #14 caps 06/13/23 pantoprazole 40 mg tablet,delayed release (Protonix) 40 mg PO DAILY #30 tabs 06/13/23 Hospital Course Operations None Procedures 2-D Echocardiogram, Colonoscopy, EGD and Stress test Summary of Care Provided Minutes Spent on Discharge: 32 Hospital Course: This 82-year-old white female was seen in the emergency room at [facility] with complaints of diarrhea and severe weakness x 24 hours. Workup in the emergency room showed an elevated creatinine at 1.76, patient's w cinda blood cell count was normal, patient's troponin was elevated at 111-patient had no complaints of any chest pain. Patient was admitted to PCU, echocardiogram was obtained which was unremarkable. Patient underwent a cardiac stress test which was negative. Patient was noted to have a drop in her hemoglobin and she was seen in consultation by gastroenterology who performed an EGD and a colonoscopy on the patient. There was noted to be an oozing gastric ulcer in the stomach and also other ulcers which were not actively bleeding. Colonoscopy revealed angiodysplastic lesion which was not bleeding. Patient did not require blood transfusion. On 06/13/2023, patient was seen and examined: On examination she appeared in good health and spirits, she does not appear to be in any distress. Vital signs as documented. Skin warm and dry and without overt rashes. Neck without JVD, thyroid appears normal, trachea is midline, neck is supple. Lungs clear, normal air movement was noted. Heart exam notable for regular rhythm, normal sounds and absence of murmurs, rubs or gallops. Abdomen unremarkable and without evidence of organomegaly, masses, or abdominal aortic enlargement, bowel sounds are present in all 4 quadrants, no abdominal tenderness was noted. Extremities nonedematous, no cyanosis was noted, no clubbing was noted. Neuro: Cranial nerves II through XII are grossly intact, no focal motor deficits were noted, sensation to light touch and pinprick is intact, motor exam 5/5 throughout. Psych: Patient is alert and oriented x2, she does not appear anxious or depressed, she does not appear agitated. Patient was discharged home in stable condition on 06/13/2023, home health was s et up for the patient at home. Weight / BMI Weight Weight: 70.1 kg Body Mass Index (BMI) 29.2 ABG / Lab / Microbiology Data 06/13/23 06:15 06/13/23 06:15 Laboratory: Laboratory Results - last 24 hr 06/11/23 06:57: Diff Path Review Reviewed 06/12/23 11:16: POC Glucose 178 H 06/12/23 14:48: POC Glucose 168 H 06/12/23 18:05: POC Glucose 153 H 06/12/23 22:40: POC Glucose 170 H 06/13/23 06:15: WBC 4.3 L, RBC 2.95 L, Hgb 8.6 L, Hct 25.5 L, MCV 86.4, MCH 29.2, MCHC 33.7, RDW Std Deviation 43.0, RDW Coeff of [place] 13.5, Plt Count 91 L, MPV 11.3, Immature Gran % (Auto) 0.200, Neut % (Auto) 52.6, Lymph % (Auto) 35.5, [place] % (Auto) 5.9, Eos % (Auto) 5.6 H, Baso % (Auto) 0.2, Absolute Neuts (auto) 2.2, Absolute Lymphs (auto) 1.51, Nucleated RBC % 0, Reactive Lymphocytes RARE, Platelet Estimate MOD DEC, Sodium 138, Potassium 3.7, Chloride 112 H, Carbon Dioxide 20.0 L, Anion Gap 6, BUN 18, Creatinine 1.07 H, Estim Creat Clear Calc 30.06, Est GFR (MDRD) Af Amer 63, Est GFR (MDRD) Non-Af 52 L, BUN/Creatinine Ratio 16.8, Glucose 162 H, Calcium 7.6 L, Total Bilirubin 0.30, AST 102 H, ALT 77 H, Alkaline Phosphatase 45, Total Protein 4.8 L, Albumin 2.0 L, Globulin 2.8, Albumin/Globulin Ratio 0.7 L 06/13/23 06:28: POC Glucose 155 H 06/13/23 10:35: POC Glucose 214 H Microbiology: Microbiology 06/10/23 13:30 Mucosa - Nasopharyngeal Coronavirus COVID-19 PCR - Final 06/09/23 09:27 Urine, Random Urine Culture - Final Escherichia coli 06/10/23 13:40 Mucosa - Nose Respiratory Panel (PCR) - Final 06/09/23 13:43 Nasal Secretion SARS-CoV-2 & FLU Antigen (Rapid) - Final 06/09/23 05:10 Stool Stool Occult Blood (LETY) - Final Occult Blood Positive 06/09/23 06:23 Stool Stool Lactoferrin - Final 06/09/23 06:23 Stool Enteric Bacteriology - Final 06/09/23 06:23 Stool C. difficile DNA Amplification - Final D/C Instructions Discharge Diet: 1800 Calorie Control Diet Weight Bearing Status: Full weight bearing Meaningful Use Info Meaningful Use Diagnoses (Choose all that apply): None applicable Discharge Plan Admission Admit Date/Time: 06/09/23 05:45 Primary Reason for Your Visit: Severe diarrhea-probable viral, anemia secondary to gastric ulcer Attending Provider: Quan Frank Primary Care Provider: PARVIZ PEREIRA Consulting Providers: Lyle Montalvo; Mignon France Instructions Additional Instructions / Restrictions: Follow-up with your primary care doctor in 1 week, get a CBC repeated Follow-up with Dr. Braxton in 3 to 4 weeks Discharge Orders/Prescriptions Prescriptions: New pantoprazole [Protonix] 40 mg tablet,delayed release (DR/EC) 40 mg PO DAILY Qty: 30 0RF cephalexin 500 mg capsule 500 mg PO TID Qty: 14 0RF Rx Instructions: Start on 06/13/2023-take 2 doses on that day Continued carvedilol 25 mg tablet 25 mg PO Q12H Patient Comments: TAKE ONE TABLET BY MOUTH TWICE DAILY hydrochlorothiazide 25 mg tablet 25 mg PO DAILY Patient Comments: TAKE ONE TABLET BY MOUTH DAILY lisinopril 40 mg tablet 40 mg PO DAILY Patient Comments: TAKE ONE TABLET BY MOUTH DAILY simvastatin 20 mg tablet 20 mg PO DAILY Patient Comments: TAKE ONE TABLET BY MOUTH DAILY metformin 500 mg tablet 500 mg PO BIDAC Patient Comments: TAKE ONE TABLET BY MOUTH TWICE DAILY Referrals / Follow Up: PARVIZ PEREIRA [Other] PARVIZ PEREIRA [Other] Tin Braxton DO [Med Staff - Active Staff] - See Referral Note (In 3 to 4 weeks) Disposition Disposition (needs filled in before D/C Order can be placed): Home, Self Care Charges/Coding Visit Charges Inpatient E&M: 73273 Disch Hosp >30min
--- NOTE | 2023-06-13 11:46 | CASEMGMT ---
Discharge Planning Referral sent to [facility] via [facility]. Aubree Moncada, Discharge Planning Asst.
--- NOTE | 2023-06-13 14:30 | PHA.DC_ITS ---
Pharmacy [facility] has performed discharge medication reconciliation and counseling for this patient. 1. CEPHALEXIN 500MG PO TID X 14 DOSES 2. PANTOPRAZOLE 40MG PO DAILY The patient's discharge medication list was reviewed for discrepancies and discrepancies were resolved. The patient was counseled on the following discharge medications and changes in medications for homegoing were reviewed. The Reason for Use, instructions for use, and potential side effects were reviewed for all new medications. The patient's questions regarding all of their medications were answered. The patient was able to verbally demonstrate an understanding of their discharge medications. Medications at Discharge Home Medications carvedilol 25 mg tablet 25 mg PO Q12H blood pressure 06/09/23 hydrochlorothiazide 25 mg tablet 25 mg PO DAILY diuretic 06/09/23 lisinopril 40 mg tablet 40 mg PO DAILY blood pressure 06/09/23 metformin 500 mg tablet 500 mg PO BIDAC diabetes 06/09/23 simvastatin 20 mg tablet 20 mg PO DAILY cholesterol 06/09/23 cephalexin 500 mg capsule 500 mg PO TID #14 caps 06/13/23 pantoprazole 40 mg tablet,delayed release (Protonix) 40 mg PO DAILY #30 tabs 06/13/23
--- NOTE | 2023-06-13 14:39 | CASEMGMT ---
Discharge Planning Updated HH order sent to [facility] via [facility]. Aubree Moncada, Discharge Planning Asst.
[2023-06-13 15:00] VITALS: BP 167/56; PULSE 65; RESP 16; TEMP 36.6; O2SAT 100
--- NOTE | 2023-06-13 15:30 | CASEMGMT ---
Patient has been accepted by [facility]. JAYLENE SPANN in to update patient, patient had no questions. JAYLENE SPANN updated patient's discharge plan with [facility] information.
--- NOTE | 2023-06-13 17:02 | NURSING ---
Reviewed charting with Kaushal Vega RN
--- NOTE | 2023-06-14 15:39 | CASEMGMT ---
Discharge Planning Requested discharge summary sent to [facility] via [facility]. Aubree Moncada, Discharge Planning Asst.
== END 2023-06-13 16:15 | disposition home or self-care (01) | DRG 391 ==
LOC: ED 05:26 → PCU 05:58
PROVIDERS: Anesthesiology; Internal Medicine; Internal Medicine Gastroenterology; Emergency Provider Emergency Medicine; Visit Provider Internal Medicine
PROC: 0DJD8ZZ Inspection of Lower Intestinal Tract, Via Natural or Artificial Opening Endoscopic (ICD-10-PCS; CPT 45378; principal; 2023-06-12 16:10)
DX: A08.4 Viral intestinal infection, unspecified (principal); K25.4 Chronic or unspecified gastric ulcer with hemorrhage; K55.21 Angiodysplasia of colon with hemorrhage; K25.0 Acute gastric ulcer with hemorrhage; M62.82 Rhabdomyolysis; D62 Acute posthemorrhagic anemia; N17.9 Acute kidney failure, unspecified; N30.00 Acute cystitis without hematuria; D69.6 Thrombocytopenia, unspecified; K22.2 Esophageal obstruction; E11.9 Type 2 diabetes mellitus without complications; F01.50 Vascular dementia, unspecified severity, without behavioral disturbance, psychotic disturbance, mood disturbance, and anxiety; I10 Essential (primary) hypertension; E86.0 Dehydration; E78.5 Hyperlipidemia, unspecified; K44.9 Diaphragmatic hernia without obstruction or gangrene; K63.5 Polyp of colon; E87.6 Hypokalemia; K57.30 Diverticulosis of large intestine without perforation or abscess without bleeding; R77.8 Other specified abnormalities of plasma proteins; I20.89 Other forms of angina pectoris; B96.20 Unspecified Escherichia coli [E. coli] as the cause of diseases classified elsewhere; R06.09 Other forms of dyspnea; R53.81 Other malaise
CPT/HCPCS: 36415; 71045; 71275; 74018; 78452; 80048; 80053; 81001; 82274; 82550; 82803; 82962; 83036; 83605; 83630; 83735; 84100; 84443; 84484; 85025; 87040; 87077; 87086; 87088; 87177; 87186; 87209; 87428; 87493; 87506; 87633; 87635; 88305; 88342; 93005; 93017; 93306; 94640; 97162; 97165; 97530; 97535; 97802; 99282; A9500; J7030; J7040; J7050; J7120; Q9967; 90662; A4216; J0744; J2785

== ENCOUNTER → 2023-09-10 | Outpatient (CLI) | payer MEDICARE, BC, SELFPAY ==
--- OUTSIDE RECORDS SUMMARY | 2023-09-10 08:49 | XMS RPT_ITS | CCD ---
Author Name Unknown Address [address] [place] [address] Organization [facility] Care Team Providers Care A Class Lineman Name Role Phone Estrellita Pereira DO Primary Care Provider SELF, SELF Referring Unavailable JELENA ASHLEY Attending Unavailable OGLE, ESTRELLITA Primary Care Unavailable BOUCHACHI, MARIE Attending Unavailable OGLE, ESTRELLITA Primary Care Unavailable OGLE, ESTRELLITA Referring Unavailable OGLE, ESTRELLITA Primary Care Unavailable BOUCHACHI, MARIE Attending Unavailable BOUCHACHI, MARIE Referring Unavailable OGLE, ESTRELLITA Primary Care Unavailable BOUCHACHI, MARIE Attending Unavailable OGLE, ESTRELLITA Referring Unavailable BOUCHACHI, MARIE Referring Unavailable BOUCHACHI, MARIE Attending Unavailable OGLE, ESTRELLITA Primary Care Unavailable OGLE, ESTRELLITA Primary Care Unavailable BOUCHACHI, MARIE Attending Unavailable OGLE, ESTRELLITA Referring Unavailable OGLE, ESTRELLITA Primary Care Unavailable BOUCHACHI, MARIE Attending Unavailable OGLE, ESTRELLITA Referring Unavailable OGLE, ESTRELLITA Primary Care Unavailable BOUCHACHI, MARIE Attending Unavailable OGLE, ESTRELLITA Referring Unavailable OGLE, ESTRELLITA Primary Care Unavailable BOUCHACHI, MARIE Attending Unavailable BOUCHACHI, MARIE Referring Unavailable OGLE, ESTRELLITA Primary Care Unavailable BOUCHACHI, MARIE Referring Unavailable BOUCHACHI, MARIE Attending Unavailable OGLE, ESTRELLITA Primary Care Unavailable KELLI NGO DR~[id number] RAUL Primary Care Vy vailable KELLI NGO DR~[id number] RAUL Consulting Vy vailable ESTRELLITA PEREIRA Admitting Unavailable ESTRELLITA PEREIRA Attending Unavailable DR RAUL PEREIRA DO Consulting Unavailable ESTRELLITA PEREIRA Consulting Unavailable OGLE, ESTRELLITA Consulting Unavailable Allergies Allergy Classification Reported Allergen(s) Allergy Type Date of Onset Reaction(s) Facility (1 source) Promethazine Drug Allergy 2 Agitation, Muscle Spasm [facility] Work Phone: (1 source) Levamisole Drug Allergy [facility] Repository Medications Current Medications Medication Drug Class(es) Dates Sig (Normalized) Sig (Original) aspirin 81 mg oral tablet (1 source) Platelet Aggregation Inhibitor, Nonsteroidal Anti-inflammator y Drug aspirin, M-1115, 81 mg PO TABS Take 81 mg by mouth See admin instructions. 0 Active calcium carbonate 1500 mg / cholecalciferol 200 unt oral tablet (1 source) Vitamin D take 1 tablet by mouth once daily Calcium Carbonate-Vitamin D 600-200 MG-UNIT tablet Take 1 tablet by mouth daily. 0 Active carvedilol 25 mg oral tablet (1 source) alpha-Adrenergic Alf, beta-Adrenergic Alf Start: 2 take 1 tablet by mouth twice daily carveDILOL 25 MG tablet Take 25 mg by mouth 2 times daily. 0 04/14/2022 Active hydroCHLOROthiazide 25 mg oral tablet (1 source) Thiazide Diuretic hydroCHLOROthiazide 25 MG tablet daily. 0 Active lisinopril 40 mg oral tablet (1 source) Angiotensin Converting Enzyme Inhibitor take 1 tablet by mouth once daily lisinopril 40 MG tablet Take 40 mg by mouth daily. 0 Active metFORMIN hydrochloride 500 mg oral tablet (1 source) Biguanide take 1 tablet by mouth twice daily metFORMIN 500 MG tablet Take 500 mg by mouth 2 times daily. 0 Active MULTIPLE VITAMIN PO (1 source) take 1 tablet by mouth once daily MULTIPLE VITAMIN PO Take 1 tablet by mouth daily. 0 Active simvastatin 20 mg oral tablet (1 source) HMG-CoA Reductase Inhibitor take 1 tablet by mouth once daily in the evening simvastatin 20 MG tablet Take 20 mg by mouth every evening at 6 PM. 0 Active Completed/Discontinued Medications Medication Drug Class(es) Dates Sig (Normalized) Sig (Original) amLODIPine 10 mg oral tablet (1 source) Dihydropyridine Calcium Channel Alf End: 05-02-2022 take 1 tablet by mouth once daily amLODIPine 10 MG tablet Take 10 mg by mouth daily. 0 05/02/2022 Discontinued metoprolol tartrate 100 mg oral tablet (1 source) beta-Adrenergic Alf End: 05-02-2022 take 1 tablet by mouth twice daily metoprolol 100 MG tab regular release Take 100 mg by mouth 2 times daily. 0 05/02/2022 Discontinued Problems Active Problems Problem Classification Problem Date Documented Da te Episodic/Chronic Delirium, dementia, and amnestic and other cognitive disorders (2 sources) Unspecified dementia without behavioral disturbance; Translations: [Unspecified dementia without behavioral disturbance] Onset: 06-07-2021 Chronic Diabetes mellitus without complication (2 sources) Other specified diabetes mellitus without complications; Translations: [Other specified diabetes mellitus without complications] Onset: 10-03-2021 Chronic Essential hypertension (1 source) Benign essential hypertension; Translations: [Essential (primary) hypertension] 09-15-2011 Chronic Melanomas of skin (1 source) Malignant melanoma; Translations: [Malignant melanoma of skin, unspecified] Onset: 08-09-2011 09-11-2021 Chronic Other hereditary and degenerative nervous system conditions (3 sources) Impaired cognition; Translations: [Mild cognitive impairment, so stated] Onset: 06-14-2021 Chronic Other hereditary and degenerative nervous system conditions (2 sources) Mild cognitive impairment, so stated; Translations: [Mild cognitive impairment, so stated] Onset: 06-14-2021 Chronic Past or Other Problems Problem Classification Problem Date Documented Da te Episodic/Chronic Other bone disease and musculoskeletal deformities (2 sources) Disorder of bone, unspecified; Translations: [Disorder of bone, unspecified] Onset: 08-18-2021 Episodic Residual codes; unclassified (2 sources) Other amnesia; Translations: [Other amnesia] Onset: 10-03-2021 Episodic Residual codes; unclassified (2 sources) Other specified health status; Translations: [Other specified health status] Onset: 10-03-2021 Episodic Results Test Name Value Interpretation Reference Range Facil ity Vital Signs Date Time Vital Sign Value Performing Clinician Faci lity 05-02-2022 13:55-0400 Body height 154.9 cm Jelena MINAYA OUTSIDE RIGGER Work Phone: [facility] Encounters Encounter Date Encounter Type Care Provider Facility Start: 06-09-2023 End: 06-09-2023 Emergency department patient visit Facility:[id number] Start: 05-09-[address]~[id number] [facility] Facility:[facility] Start: 05-02-2022 ambulatory SELF SELF Facility:[facility] Start: 05-02-2022 End: 05-02-2022 Assmt & care planning pt w/cognitive impairment Jelena Ashley APRN-JOSE Work Phone: [facility] Procedures Date Procedure Procedure Detail Performing Clinician Start: 08-16-2021 Follow-up visit Follow-up MARIE GARZA Plan of Treatment Date Care Activity Detail Author Start: 11-03-2022 End: 11-03-2022 Patient encounter procedure 11/03/2022 Office Visit Neurology Marie Garza MD [address] [place] [address] [facility] [place] Start: 08-16-2022 Potassium [Moles/volume] in Serum or Plasma POTASSIUM [facility] Start: 03-09-2022 Influenza vaccination INFLUENZA VACCINE (#1) [facility] Start: 09-20-2004 Pneumococcal vaccination PNEUMOCOCCAL VACCINE SERIES (1 - PCV) [facility] Start: 09-20-1989 Zoster vaccine hzv live for subcutaneous use ZOSTER (SHINGLES) VACCINE (1 of 2) [facility] Start: 09-20-1984 Screening for malignant neoplasm of colon COLORECTAL CANCER SCREENING DISCUSSION [facility] Start: 1979 Screening for malignant neoplasm of breast MAMMOGRAM SCREENING DISCUSSION [facility] Start: 09-20-1960 Screening for malignant neoplasm of cervix CERVICAL CANCER SCREENING DISCUSSION [facility] Start: 09-20-1958 Third diphtheria, tetanus and acellular pertussis (DTaP) vaccination TDAP (ADULT) [facility] Start: 09-20-1957 Tetanus vaccination TETANUS [facility] Start: 03-23-1940 COVID-19 VACCINE (#1) COVID-19 VACCINE (#1) [facility] Start: 1939 Screening for osteoporosis DEXA SCAN DISCUSSION [facility] Immunizations Immunization Date Immunization Notes Care Provider Fa cility 04-01-2020 influenza virus vaccine, unspecified formulation Jelena Kovesci DRAFTER GEOLOGICAL-GAS REGULATOR REPAIRER HELPER Work Phone: [facility] Payers Date Payer Category Payer Unknown GENERIC PAYOR ME DICARE SUPPLEMENT [id number] 2016-Present [address] [place] [address] [id number] 2011 Medicare MEDICARE MEDICAR E A AND B [id number] 2011-Present [address] [place] [address] [id number] 1959 Medicare [id number] 1959 Unknown [id number] 1939 Unknown [id number] 1939 Unknown [id number] 1939 Unknown [id number] 1939 Unknown [id number] 1939 Unknown [id number] 1939 Unknown [id number] 1939 Unknown [id number] 1939 Unknown [id number] 1939 Unknown [id number] 1939 Unknown [id number] 1939 Unknown [id number] 1939 Unknown [id number] Social History Date Type Detail Facility Tobacco smoking stat [facility] Never smoked tobacco [facility] Work Phone: Start: 05-02-2022 Alcohol intake Current drinke r of alcohol (finding) [facility] Start: 1940 Sex Assigned At Not on file [facility] History of Present illness Narrative 05-02-2022 Jelena Tucker Ashley, DRAFTER GEOLOGICAL-GAS REGULATOR REPAIRER HELPER - 05/02/2022 1:40 PM EDT Note Date & Type Note Facility 05-02-2022 History of Present illness Narrative [facility] Follow up visit HISTORY OF PRESENT ILLNESS: Mabel East is a 81 y.o. female who returned to the [facility] today for a follow-up visit for her diagnosis of mild cognitive impairment. She is accompanied today by her daughter Juwan, who provides collateral information. Interim History: She was last seen in our clinic on 08/16/[address] Montano. At her last visit no medications were changed. Driving: She had the clinical part of the driving eval but then they realized her licence was so could not do the on the road portion at that time. They went to get her license renewed and she failed the vision screening. She went to the eye doctor and had a cataract which was removed in December and her vision is fine now. They have not pursued finishing the driving evaluation and are not interested at this time. Daughter rides with her at least monthly. Judgement on the road is good. No accidents. No getting lost. They have a GPS tracker on her cell phone. Encouraged them to continue to ride with her regularly and let us know if they want to re-order the driving eval. She should continue to limit her driving to familiar, local places and not drive in bad weather, or high traffic times or at night. Bills and finances: Juwan recently took this over to reduce her stress and not make any errors. She could do it on her own, but is choosing not to. She stays involved in how much money she has and what she needs to spend her money on. She does all her own shopping. Behaviorally she tends to get fixated on things at times. This is generally manageable. She had once incident that may have been anxiety related where she went to the ER for shortness of breath but everything was found to be fine. Otherwise, she doesn't have regular anxiety issues. They notice she does better when she is around others. They have tried to divide the kids and each one She does a great job of writing things on her calendar. She is still cooking as well as she did in the past. Cognitive Symptoms 05/02/2022 06/07/2021 COGNITIVE SYMPTOMS: 0=absent, 1-mild, 2-moderate, 3-severe Yes Yes Short Term Memory Trouble 2 1 Misplace Items 1 1 Repeat Questions 2 2 Unable to Recognize Family 0 0 Disorientation to Date 0 0 Word Finding Trouble 0 0 Verbal Comprehension Loss 0 1 Poor Sense of Direction 1 1 Lost in Home 0 0 Total Cognitive Score 6 6 BEHAVIORAL SYMPTOMS: 0=absent, 1-mild, 2-moderate, 3-severe Yes No Delusions 0 0 Hallucinations 0 0 Agitation or aggression 0 0 Depression or dysphoria 0 0 Anxiety 1 0 Elation or euphoria 0 0 Apathy or indifference 0 0 Disinhibition 0 0 Irritability or lability 1 0 Motor disturbance 0 0 Nighttime behaviors 1 0 Appetite and Eating 1 0 Total Behavioral Score 4 0 FUNCTIONAL ABILITY - No Driving only locally independent Finances-Bill Paying no longer performs by choice independent Shopping independent independent Cooking independent independent Appliances/Microwave independent independent Hobbies/Leisure Activities independent independent Housekeeping/Yard work independent independent Computer/Tablet independent independent Cell phone/TV Remote independent independent Land Telephone no longer performs by choice independent Medication Management independent independent Dressing independent independent Grooming independent independent Feeding independent independent Toileting independent independent Urinary Incontinence none none Bowel Incontinence none none Falls absent absent Walking performs independently performs independently MEDICATIONS, ALLERGIES, SOCIAL HISTORY Current Outpatient Medications Medication Sig aspirin, M-1115, 81 mg PO TABS Take 81 mg by mouth See admin instructions. Calcium Carbonate-Vitamin D 600-200 MG-UNIT tablet Take 1 tablet by mouth daily. carveDILOL 25 MG tablet Take 25 mg by mouth 2 times daily. hydroCHLOROthiazide 25 MG tablet daily. lisinopril 40 MG tablet Take 40 mg by mouth daily. metFORMIN 500 MG tablet Take 500 mg by mouth 2 times daily. MULTIPLE VITAMIN PO Take 1 tablet by mouth daily. simvastatin 20 MG tablet Take 20 mg by mouth every evening at 6 PM. She is allergic to phenergan [promethazine hcl]. Name of person overseeing home meds: patient fills a pill box weekly. Juwan checks on this. Social History Social History Narrative She lives at home by her self. Her primary caregiver/assembly lead person is her daughter. This caregiver is willing to take on caregiver tasks. 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 She is . She has 7 children. Years of education: 12. Highest grade or degree completed: HS. Handedness: Right. Advance Care Planning: Her Healthcare power of energy attorney is her daughter Juwan. Her Financial power of energy attorney is her daughter Hoa. She does not have a Living Will in place. COGNITIVE TESTING: Mini Mental Status Exam (MMSE) Equivalent and Self Administered Gerocognitive Exam (DARIEN) Scores 06/07/2021 05/02/2022 Mini Mental Status Exam Score 24 23 DARIEN/BrainTest Raw Score 15 10 DARIEN/BrainTest Adjusted Score - 10 Some recent data might be hidden PHYSICAL EXAM: Vital signs are: BP 160/71 (BP Location: Right arm, BP Position: Sitting) Pulse 71 Temp 97.6 F (36.4 C) (Infrared) Ht 1.549 m (5' 1 ) Comment: verbal Wt 67 kg (147 lb 12.8 oz) BMI 27.93 kg/m Smoking Status Never The patient's weight today represents a 7 lb decrease since her last visit. Wt Readings from Last 3 Encounters: 05/02/22 67 kg (147 lb 12.8 oz) 08/16/21 70.2 kg (154 lb 12.8 oz) 07/14/21 69.9 kg (154 lb) General: The patient presents for the evaluation appropriately dressed and groomed. She is pleasant and cooperative. Cranial nerves: EOM intact. Symmetrical facial strength. Motor: Normal strength in all extremities. Tone: no paratonia bilaterally in the upper extremities. Coordination: no dysmetria on [id number] testing. no apraxia bilaterally with fine finger movements. Tremors: no postural tremor bilaterally. Gait: minimal imbalanced gait. She is able to walk without assistance. ASSESSMENT/PLAN The patient meets criteria for mild cognitive impairment and the underlying etiology is most likely cerebrovascular. Her functional abilities are still relatively intact. She is at the mild stage. She has had mild decline since the last visit and is doing as well as can be expected for this condition. At the time of the visit, it is my opinion that the patient does not have impaired decision-making capacity. Previously tried cognitive enhancing medications: Donepezil: No Rivastigmine: No Galantamine: No Memantine: No We reviewed and discussed factors that could contribute to cognitive impairment. Medications were reconciled and reviewed for high risk medications. We discussed caregiver and social issues including caregiver knowledge and needs, social supports and resource availability. We discussed activities of daily living and home safety issues. The patient has had behavioral/neuropsychiatric symptoms. These symptoms are not problematic enough to warrant a medication adjustment. We discussed behavioral modification techniques as well as environmental factors that can impact behaviors. I reviewed all her psychopharmacological medications at this visit and except as noted below, all of those medications are currently at the lowest effective dose to manage the behaviors. We have discussed the risks and benefits of these agents with the patient, family and/or legally authorized health and safety representative including, but not limited to, any black box warnings. The plan of care was discussed with the patient and/or family or legally authorized health and safety representative and all questions answered. A copy of the care plan below was provided on their After Visit Summary. Care Plan: Mabel East was seen today for her diagnosis of mild cognitive impairment. She will continue to be monitored over time to manage and treat her condition. We will assess for changes in cognitive and functional abilities and behavioral changes. Medication changes will be discussed and recommended if warranted. Neurological and/or behavioral medication recommendations: No medication changes today. Safety and social recommendations: Please send us a copy of your healthcare power of energy attorney documents. This can be faxed to or mailed to [facility]. [address] [place] [id number]. As we discussed, we have a social work lecturer available if additional resource needs develop. Please contact Hafsa Ocampo at . Follow up in about [address] Garza. Call our office with any questions or concerns between appointments: . [facility] Patient Instructions Note Date & Type Note Facility 05-02-2022 Instructions [facility] [place] - 05/02/2022 1:40 PM EDT Care Plan: Mabel East was seen today for her diagnosis of mild cognitive impairment. She will continue to be monitored over time to manage and treat her condition. We will assess for changes in cognitive and functional abilities and behavioral changes. Medication changes will be discussed and recommended if warranted. Neurological and/or behavioral medication recommendations: No medication changes today. Safety and social recommendations: Please send us a copy of your healthcare power of energy attorney documents. This can be faxed to or mailed to [address] [place] [address]. As we discussed, we have a social work lecturer available if additional resource needs develop. Please contact Hafsa Ocampo at . Follow up in about [address] Garza. Call our office with any questions or concerns between appointments: . documented in this encounter [facility] Evaluation note Note Date & Type Note Facility documented in this encounter [facility] Summary Purpose Family History No Family History Records FoundNo Family History Records FoundNo Family History Records Found Advance Directives No Advanced Directives Records FoundNo Advanced Directives Records FoundNo Advanced Directives Records Found Additional Source Comments Reason for Visit (unrecogniz ed section and content) Care Teams (unrecognized sec tion and content) INFORMATION SOURCE (unrecogn ized section and content) DATE CREATED AUTHOR AUTHOR'S MEHUL ATION 05/08/2023 [facility] DATE CREATED AUTHOR AUTHOR'S ORGANBRENNAN ATION 06/11/2023 [facility] Ce nter FOR RECORDS PERTAINING TO PATIENTS WHO ARE OR HAVE BEEN ENROLLED IN A CHEMICAL DEPENDENCY/SUBSTANCEABUSE PROGRAM, SOME INFORMATION MAY BE OMITTED. This clinical summary was aggregated from multiple sources. Caution should be exercised in using it in the provision of clinical care. This summary normalizes information from multiple sources, and as a consequence, information in this document may materially change the coding, format and clinical context of patient data. In addition, data may be omitted in some cases. CLINICAL DECISIONS SHOULD BE BASED ON THE PRIMARY CLINICAL RECORDS. [facility] [employer] [facility]. provides no warranty or guarantee of the accuracy or completeness of information in this document.
[2023-09-10 09:10] LABS: Absolute Lymphocyte Count 2.75 X10^3/uL (0.83-4.51); Absolute Neutrophil Count 4.5 X10^3/uL (2.0-7.7); Basophil# 0.04 X10^3/uL; Basophil% 0.5 % (0-1); Eosinophil# 0.23 X10^3/uL; Eosinophils% 2.9 % (0-5); Hematocrit 39.9 % (37-47); Hemoglobin 13.1 g/dL (12.0-15.0); Lymphocyte # 2.75 X10^3/ul (0.83-4.51); Lymphocyte % 34.6 % (19-41); Mean Corp Hgb Conc 32.8 g/dL (32-36); Mean Corpuscular Hgb 26.7 pg (27.0-32.0); Mean Corpuscular Volume 81.3 fL (81-99); Mean Platelet Vol. 10.1 fl (6.2-12.0); Monocyte# 0.45 X10^3/uL; Monocyte% 5.7 % (0-10); NRBC Flagged by Analyzer 0 % (0-5); Neutrophil # 4.46 X10^3/uL (2.7-7.7); Platelet Count 237 K/mm3 (150-450); RBC Distribution Width CV 13.6 % (11.6-14.6); RBC Distribution Width SD 39.8 fl (35.1-43.9); RET-HE 32.3 pg (30-35); Red Blood Count 4.91 M/mm3 (4.2-5.4); Reticulocyte Count 1.19 % (0.5-1.5)
[2023-09-10 09:41] LABS: Vitamin B12 301 pg/mL (211-911)
[2023-09-10 10:36] LABS: Ferritin 37 ng/mL (8-252); Iron 54 ug/dL (50-170); Iron Binding Capacity,Total 381 ug/dL (250-450); LDH 202 U/L (84-246); Thyroid Stim Hormone (TSH) 5.26 uIU/mL (0.358-3.74)
[2023-09-12 15:08] LABS: Albumin 3.8 g/dL (2.9-4.4); Alpha-1-Globulins 0.2 g/dL (0.0-0.4); Alpha-2-Globulins 0.9 g/dL (0.4-1.0); Anti-Parietal Cell AB, QN 2.4 Units (0.0-20.0); Endomysial Antibody IgA Negative (Negative); Gamma Globulin 0.9 g/dL (0.4-1.8); Gastrin, Serum 13 pg/mL (0-115); Haptoglobin 201 mg/dL (41-333); Immunoglobulin A 116 mg/dL (64-422); Immunoglobulin G 943 mg/dL (586-1602); Immunoglobulin M 95 mg/dL (26-217); PROEL- TOTAL PROTEIN 6.8 g/dL (6.0-8.5); t-Transglutaminase IgA <2 U/mL (0-3)
== END | disposition home or self-care (01) ==
PROVIDERS: Referring Provider Internal Medicine Gastroenterology; Visit Provider Internal Medicine Gastroenterology
DX: D64.9 Anemia, unspecified (principal); D61.818 Other pancytopenia; N17.9 Acute kidney failure, unspecified; K92.2 Gastrointestinal hemorrhage, unspecified
CPT/HCPCS: 36415; 82607; 82728; 82746; 82784; 82941; 83010; 83516; 83540; 83550; 83615; 84165; 84443; 85025; 85045; 86255; 86334; 86340